=== PATIENT | female | born 1955 | race Caucasian/White ===

== ENCOUNTER 2018-01-08 20:12 | Emergency (ER) | payer MEDICARE ==
[~2018-01-08] VITALS: Ht 172.7 cm; Wt 78.9 kg
[2018-01-08 20:47] LABS: BASOPHILS # (AUTO) 0.1 (0.0-0.1); BASOPHILS % 0.7 % (0.0-1.0); EOSINOPHILS # (AUTO) 0.2 (0.0-0.4); EOSINOPHILS % 2.4 % (0.0-6.0); HEMATOCRIT 39.3 % (34.2-44.1); HEMOGLOBIN 12.8 g/dL (12.0-16.0); LYMPHOCYTES # (AUTO) 2.9 (1.0-3.2); LYMPHOCYTES % 33.5 % (18.0-39.1); MEAN CORPUSCULAR HEMOGLOBIN 28.1 pg (28-32); MEAN CORPUSCULAR HGB CONC 32.6 g/dL (31-35); MEAN CORPUSCULAR VOLUME 86.2 fL (81-99); MONOCYTES # (AUTO) 0.7 (0.2-0.8); MONOCYTES % 8.5 % (4.4-11.3); NEUTROPHILS # (AUTO) 4.8 (2.1-6.9); NEUTROPHILS % 54.7 % (38.7-80.0); PLATELET COUNT 263 x10e3/uL (140-360); RED BLOOD COUNT 4.56 x10e6/uL (3.6-5.1); RED CELL DISTRIBUTION WIDTH 12.7 % (11.7-14.4)
[2018-01-08 21:01] LABS: INR 0.91; PROTHROMBIN TIME 13.1 seconds (11.9-14.5)
[2018-01-08 21:11] LABS: ALBUMIN 3.9 g/dL (3.5-5.0); ALBUMIN/GLOBULIN RATIO 1.1 (0.8-2.0); ANION GAP 14.2 mmol/L (8-16); CALCIUM 9.8 mg/dL (8.4-10.2); CREATININE, SERUM 1.19 mg/dL (0.57-1.11); POTASSIUM 4.2 mmol/L (3.5-5.1)
[2018-01-08 21:17] LABS: CREATINE KINASE MB 0.9 ng/mL (0-5.0)
--- NOTE | 2018-01-08 21:48 | Diagnostic Imaging Report ---
EXAM: KNEE LEFT THREE VIEWS, AP, cross table lateral and oblique INDICATION: Pain in left knee after fall COMPARISON: None FINDINGS: BONES: No acute fractures. JOINTS: No malalignment. Degenerative changes. SOFT TISSUES: Normal IMPRESSION: No acute left knee findings. Signed by: Dr. Ginger Trent M.D. on 01/08/2018 9:45 PM
--- NOTE | 2018-01-08 21:49 | Diagnostic Imaging Report ---
EXAM: CHEST SINGLE (NOT PORTABLE), AP 1 view INDICATION: Not available COMPARISON: None FINDINGS: LINES/TUBES: None LUNGS: No consolidations or edema. PLEURA: No effusions or pneumothorax. HEART AND MEDIASTINUM: Normal size and contour. BONES AND SOFT TISSUES: No acute findings. IMPRESSION: No acute thoracic abnormality. Signed by: Dr. Ginger Trent M.D. on 01/08/2018 9:46 PM
--- NOTE | 2018-01-08 22:09 | Diagnostic Imaging Report ---
EXAMINATION: Head CT without contrast. HISTORY:Status post fall. COMPARISON:None. TECHNIQUE: Multidetector axial images were obtained from the foramen magnum to the vertex without contrast. The images were reconstructed using brain and bone algorithms. Thin section brain images were reformatted into coronal and sagittal planes. Dose modulation, iterative reconstruction, and/or weight based adjustment of the mA/kV was utilized to reduce the radiation dose to as low as reasonably achievable. Intravenous contrast: None IMAGE QUALITY: Acceptable. FINDINGS: Skull/scalp: No lytic or blastic. lesions. No surgical changes. Parenchyma: Nonspecific few, scattered supratentorial white matter patchy hypodensity are likely related to small vessel ischemic changes. No acute hemorrhage, mass or acute major vascular territorial infarct. Arteries: No density suggestive of thrombosis. Atherosclerotic calcification in bilateral carotid siphon. Dural sinuses: No abnormal density suggestive of thrombosis. Ventricles: No hydrocephalus or displacement. Extra-axial spaces: No abnormal density. Brain volume: Normal for age. Craniocervical junction: No mass, Chiari malformation, or basilar invagination. Sella: No mass. Paranasal/mastoid sinuses: Imaged portions unremarkable. IMPRESSION: No acute intracranial abnormality. Mild supratentorial white matter microvascular ischemic changes. Signed by: Dr. Katelin Dickey M.D. on 01/08/2018 10:05 PM
--- NOTE | 2018-01-08 22:14 | Diagnostic Imaging Report ---
History: Status post fall. Comparison studies: None Technique: Axial images were obtained through the cervical region.. Coronal and sagittal images reconstructed from the axial data. Dose modulation, iterative reconstruction, and/or weight based adjustment of the mA/kV was utilized to reduce the radiation dose to as low as reasonably achievable. Intravenous contrast: None Findings: Fractures: No acute fracture. Soft tissue injuries: None. Atlantoaxial articulation: Intact. Alignment: Loss of normal cervical lordosis is either positional or due to muscle spasm. No scoliosis. Cervicomedullary junction: No abnormalities. The foramen magnum is patent. Soft tissues: No abnormalities. Vertebrae: 8.4 mm well-corticated osseous fragment represents os odontoideum, a sequelae of prior trauma. No infection or neoplasm. Degenerative changes: C3-C4: Mild degenerative disc disease with anterior vertebral osteophyte and endplate sclerosis. C7-T1: Moderate left foraminal stenosis due to facet and uncovertebral arthrosis. IMPRESSION: 1. No acute cervical spine fracture. Loss of normal cervical lordosis is either positional or due to muscle spasm. 2. Ligament, spinal cord and or vascular abnormalities cannot be excluded on the basis of this examination. Signed by: Dr. Katelin Dickey M.D. on 01/08/2018 10:11 PM
[2018-01-08 22:16] LABS: CLARITY,URINE CLEAR (CLEAR); COLOR,URINE YELLOW (YELLOW); LEUKOCYTE ESTERASE ,URINE TRACE (NEGATIVE)
[2018-01-08 22:17] LABS: BACTERIA,URINE FEW /HPF; BILIRUBIN,URINE NEGATIVE (NEGATIVE); EPITHELIAL CELLS,URINE FEW /LPF; KETONES,URINE NEGATIVE (NEGATIVE); NITRITE,URINE NEGATIVE (NEGATIVE); PROTEIN,URINE DIPSTICK NEGATIVE (NEGATIVE); RBC,URINE 0-5 /HPF (0-5); URINE UROBILINOGEN 0.2 mg/dL (0.2 - 1); WBC,URINE (MAN) 0-5 /HPF (0-5)
--- NOTE | 2018-01-08 22:23 | Diagnostic Imaging Report ---
History:Status post fall. Comparison studies: None Technique: Axial images were obtained through the maxillofacial region. Coronal and sagittal images reconstructed from the axial data. Dose modulation, iterative reconstruction, and/or weight based adjustment of the mA/kV was utilized to reduce the radiation dose to as low as reasonably achievable. Intravenous contrast: None Findings: Soft tissues: No abnormalities. Bones: No fractures or bony abnormalities. Orbits: Globes: Intact Extra or intraconal abnormalities: None. Paranasal sinuses: Small polyp/retention cyst in left maxillary sinus. IMPRESSION: No acute abnormality. Signed by: Dr. Katelin Dickey M.D. on 01/08/2018 10:20 PM
[2018-01-08 22:39] VITALS: BP 166/83
--- OUTSIDE RECORDS SUMMARY | 2018-01-13 13:14 | XMS REPORT | Clinical Summary ---
Author Author [facility] Organization [employer] [facility] Address Unknown Phone Unavailable Care Team Providers Care Vault Manager Name Role Phone Luther Alvarado DO PCP Allergies Active Allergy Reactions Severity Noted Date Comments Kwesi Inhibitors 11/11/2016 Codeine 11/11/2016 Current Medications Prescription Sig. Disp. Refills Start End Date Status Date butalbital-acetaminophen- TAKE ONE (1) TABLET(S) BY 0 09/28/19 Active caff (FIORICET, ESGIC) MOUTH EVERY EIGHT HOURS 17 50-325-40 mg per tablet NEEDED FOR MIGRAINE HEADACHE. citalopram (CeleXA) 40 MG TAKE ONE (1) TABLET(S) BY 1 10/09/19 Active tablet MOUTH ONCE A DAY. 17 famotidine (PEPCID) 20 MG TAKE ONE (1) TABLET(S) BY 0 09/28/19 Active tablet MOUTH TWICE A DAY BEFORE 17 MEALS. ondansetron (ZOFRAN) 8 MG TAKE ONE (1) TABLET(S) BY 1 10/09/19 Active tablet MOUTH TWICE A DAY. 17 ondansetron ODT (ZOFRAN Take 1 tablet (4 mg 12 tablet 0 09/20/19 10/20/19 ODT) 4 MG disintegrating total) by mouth every 12 18 18 tablet (twelve) hours as needed for nausea for up to 30 days. Active Problems Problem Noted Date Chest pain 11/11/2016 Encounters Date Type Specialty Care Team Description 09/18/2017 Emergency Emergency Medicine Jonny Douglas Burning chest pain - Radhika Del Castillo MD (Primary Dx); 09/19/2017 Other migraine without status migrainosus, not intractable after 01/07/2017 Social History Tobacco Use Types Packs/Day Years Used Date Never Smoker Tobacco Cessation: Counseling Given: No Alcohol Use Drinks/Week oz/Week Comments No Sex Assigned at Date Recorded Not on file Last Filed Vital Signs Vital Sign Reading Time Taken Blood Pressure 180/86 09/19/2017 1:24 AM CDT Pulse 52 09/19/2017 1:24 AM CDT Temperature 35.7 C (96.2 F) 09/19/2017 1:24 AM CDT Respiratory Rate 16 09/19/2017 1:24 AM CDT Oxygen Saturation 99% 09/19/2017 1:24 AM CDT Inhaled Oxygen - - Concentration Weight 90.7 kg (200 lb) 09/18/2017 7:06 PM CDT Height 175.3 cm (5' 9") 09/18/2017 7:06 PM CDT Body Mass Index 29.53 09/18/2017 7:06 PM CDT Plan of Treatment Health Maintenance Due Date Last Done Comments CERVICAL CANCER SCREENING 1978 BREAST CANCER SCREENING 10/31/2007 COLON CANCER SCREENING 10/31/2007 SHINGRIX VACCINE (#1) 10/31/2007 INFLUENZA VACCINE 10/29/2017 ZOSTER VACCINE 2017 Implants Implanted Type Area Coach Builder Device Expiration Model / Identifier Date Serial / Lot Device Vasclr Clsr Baln Cath 10ml Cardiovasc N/A: N/A ACCESS CLOSURE 08/28/2018 [id number] / Lkng Syr 5fr [employer] / [id number] Implants [id number] Implanted: 11/12/2016 (Quantity not on file) Device Vasclr Clsr Baln Cath 10ml Cardiovasc N/A: N/A ACCESS CLOSURE 08/28/2018 [id number] / Lkng Syr 5fr [employer] / [id number] Implants [id number] Implanted: 11/12/2016 (Quantity not on file) Procedures Procedure Name Priority Date/Time Associated Diagnosis Comments TROPONIN Timed 09/19/2017 Results for this 12:31 AM CDT procedure are in the results section. ECG ED PRELIMINARY Routine 09/18/2017 Results for this INTERPRETATION 9:20 PM CDT procedure are in the results section. XR CHEST 2 VW STAT 09/18/2017 Results for this 8:41 PM CDT procedure are in the results section. ZZESTIMATED GFR STAT 09/18/2017 Results for this 8:00 PM CDT procedure are in the results section. TROPONIN STAT 09/18/2017 Results for this 8:00 PM CDT procedure are in the results section. BASIC METABOLIC PANEL STAT 09/18/2017 Results for this 8:00 PM CDT procedure are in the results section. HC COMPLETE BLD COUNT STAT 09/18/2017 Results for this W/AUTO DIFF 8:00 PM CDT procedure are in the results section. ECG 12-LEAD STAT 09/18/2017 Results for this 6:59 PM CDT procedure are in the results section. after 01/07/2017 Results * Troponin (09/19/2017 12:31 AM) Only the most recent of 2 results within the time period is included. Troponin <0.30 ng/mL [facility] DEPARTMENT OF Comment: PATHOLOGY AND 0.11 - 1.49 GENOMIC MEDICINE ng/mlMay indicate increased risk of acute coronary syndrome. >=1.5 ng/ml Consistent with acute myocardial infarction. The diagnostic value of a single normal or non-diagnostic result is questionable.Serial samples at 2-6 hour intervals are required to rule out acute myocardial injury. Specimen Plasma specimen Performing Organization Address City/State/Zipcode Phone Number [facility] DEPARTMENT OF [address] [place] [address] PATHOLOGY AND GENOMIC MEDICINE * ECG ED Preliminary Interpretation - NOT AN ORDER (09/18/2017 9:20 PM) Narrative Performed At Jonny Douglas Jr., MD 09/19/20171:25 AM ECG ED Preliminary Interpretation - Not an Order Performed by: JONNY DOUGLAS JR. Authorized by: JONNY DOUGLAS JR. ECG reviewed by ED Physician in the absence of a transitional care liaison: yes Previous ECG: Previous ECG:Compared to current Comparison ECG info:T-wave inversions were present on prior EKG done November 11, 2016. OR interval was borderline high at that time. Similarity:No change Interpretation: Interpretation: abnormal Rate: ECG rate:51 ECG rate assessment: bradycardic Rhythm: Rhythm: sinus rhythm Ectopy: Ectopy: none QRS: QRS axis:Normal QRS intervals:Normal Conduction: Conduction: abnormal Abnormal conduction: 1st degree ST segments: ST segments:Normal T waves: T waves: inverted T wave depression noted on lead: high lateral. Comments: No STEMI * XR Chest 2 Vw (09/18/2017 8:41 PM) Narrative Performed At Examination: Chest 2 views [facility] CLINICAL HISTORY: Chest Pain COMPARISON: 11/11/2016 FINDINGS: The heart is normal in size. Mediastinum is within normal limits. IMPRESSION: Lungs are clear. Pleural surfaces are smooth. [facility]-[id number] Procedure Note Hm Interface, Radiology Results Incoming - 09/18/2017 8:54 PM CDT Examination: Chest 2 views CLINICAL HISTORY: Chest Pain COMPARISON: 11/11/2016 FINDINGS: The heart is normal in size. Mediastinum is within normal limits. IMPRESSION: Lungs are clear. Pleural surfaces are smooth. [facility]-[id number] Performing Organization Address City/[facility]/Zipcode Phone Number [facility] [address] [place] [address] * Estimated GFR (09/18/2017 8:00 PM) GFR Non Af Amer 57 (A) mL/min/1.73 m2 [facility] DEPARTMENT OF PATHOLOGY AND GENOMIC MEDICINE GFR Af Amer 69 mL/min/1.73 m2 [facility] DEPARTMENT OF Comment: PATHOLOGY AND Chronic kidney disease: <60 [facility] MEDICINE mL/min/1.73m2 Kidney failure: <15 mL/min/1.73m2 The estimated GFR is calculated from the IDMS-traceable Modification of Diet in Renal Disease Equation. The accuracy of the calculation is poor when the creatinine is normal. Calculated values >90 mL/min/1.73m2 are not reported. This equation has not been validated in children (<18 years), women, the elderly (>70 years), or ethnic groups other than Caucasians and Americans. Specimen Plasma specimen Performing Organization Address City/State/Zipcode Phone Number [place] [address] [place] [address] PATHOLOGY AND GENOMIC MEDICINE * CBC with platelet and differential (09/18/2017 8:00 PM) WBC 7.9 4.2 - 11.0 k/uL [facility] DEPARTMENT OF PATHOLOGY AND GENOMIC MEDICINE RBC 4.73 4.04 - 5.86 m/uL [facility] DEPARTMENT OF PATHOLOGY AND GENOMIC MEDICINE HGB 13.3 11.5 - 15.3 g/dL [facility] DEPARTMENT OF PATHOLOGY AND GENOMIC MEDICINE HCT 41.3 34.0 - 45.0 % [facility] DEPARTMENT OF PATHOLOGY AND GENOMIC MEDICINE MCV 87.3 80.0 - 98.0 fL [facility] DEPARTMENT OF PATHOLOGY AND GENOMIC MEDICINE MCH 28.1 27.0 - 34.0 pg [facility] DEPARTMENT OF PATHOLOGY AND GENOMIC MEDICINE MCHC 32.2 31.5 - 36.5 g/dL [facility] DEPARTMENT OF PATHOLOGY AND GENOMIC MEDICINE RDW - SD 39.9 37.0 - 51.0 fL [facility] DEPARTMENT OF PATHOLOGY AND GENOMIC MEDICINE MPV 10.4 7.4 - 10.4 fL [facility] DEPARTMENT OF PATHOLOGY AND GENOMIC MEDICINE Platelet count 266 150 - 400 k/uL [facility] DEPARTMENT OF PATHOLOGY AND GENOMIC MEDICINE Nucleated RBC 0.00 /100 WBC [facility] DEPARTMENT OF PATHOLOGY AND GENOMIC MEDICINE Neutrophils 52.9 36.0 - 66.0 % [facility] DEPARTMENT OF PATHOLOGY AND GENOMIC MEDICINE Lymphocytes 37.0 24.0 - 44.0 % [facility] DEPARTMENT OF PATHOLOGY AND GENOMIC MEDICINE Monocytes 7.8 (H) 0.0 - 6.0 % [facility] DEPARTMENT OF PATHOLOGY AND GENOMIC MEDICINE Eosinophils 1.5 0.0 - 6.0 % [facility] DEPARTMENT PATHOLOGY AND GENOMIC MEDICINE Basophils 0.5 0.0 - 1.2 % [facility] DEPARTMENT PATHOLOGY AND GENOMIC MEDICINE Immature granulocytes 0.3 0.0 - 1.0 % [facility] PATHOLOGY AND GENOMIC MEDICINE Specimen Blood Performing Organization Address City/[facility] Phone Number [place] [address] [place] [address] PATHOLOGY AND GENOMIC [facility] * Basic metabolic panel (09/18/2017 8:00 PM) Sodium 137 135 - 150 mEq/L [facility] DEPARTMENT OF PATHOLOGY AND GENOMIC MEDICINE Potassium 4.3 3.5 - 5.0 mEq/L [facility] DEPARTMENT OF PATHOLOGY AND GENOMIC MEDICINE Chloride 102 98 - 112 mEq/L [facility] DEPARTMENT OF PATHOLOGY AND GENOMIC MEDICINE CO2 26 24 - 31 mmol/L [facility] DEPARTMENT PATHOLOGY AND GENOMIC MEDICINE Anion gap 9@ANIO 7 - 15 mEq/L [facility] DEPARTMENT OF PATHOLOGY AND GENOMIC MEDICINE BUN 14 7 - 18 mg/dL [facility] DEPARTMENT PATHOLOGY AND GENOMIC MEDICINE Creatinine 1.00 (H) 0.50 - 0.90 mg/dL [facility] DEPARTMENT PATHOLOGY AND GENOMIC MEDICINE Glucose 171 (H) 65 - 100 mg/dL [facility] DEPARTMENT PATHOLOGY AND GENOMIC MEDICINE Calcium 9.5 8.3 - 10.2 mg/dL [facility] DEPARTMENT PATHOLOGY AND GENOMIC MEDICINE Specimen Plasma specimen Performing Organization Address City/[facility]/Zipcode Phone Number [place] [address] [place] [address] PATHOLOGY AND GENOMIC MEDICINE * ECG 12 lead (09/18/2017 6:59 PM) Ventricular rate 51 [facility] Atrial rate 51 [facility] OR interval 212 [facility] QRSD interval 84 [facility] QT interval 466 [facility] QTC interval 429 [facility] P axis 1 67 [facility] QRS axis 1 -13 [facility] T wave axis 143 [facility] EKG impression Sinus bradycardia with 1st [facility] degree AV block-Cannot rule out Anteroseptal infarct , age undetermined-ST & T wave abnormality, consider lateral ischemia-Abnormal ECG-No previous ECGs available- Performing Organization Address City/State/Zipcode Phone Number [facility] [address] [place] [address] after 01/07/2017 Insurance Payer Benefit Subscriber ID Type Phone Address Plan / Group [employer] CIGNA xxxxxxxxx [facility]
== END 2018-01-08 22:45 | disposition home or self-care (01) ==
LOC: ER 20:12
DX: R42 Dizziness and giddiness (principal); S00.83XA Contusion of other part of head, initial encounter; S80.02XA Contusion of left knee, initial encounter; S00.81XA Abrasion of other part of head, initial encounter; S80.212A Abrasion, left knee, initial encounter; W01.0XXA Fall on same level from slipping, tripping and stumbling without subsequent striking against object, initial encounter; Y93.01 Activity, walking, marching and hiking; I10 Essential (primary) hypertension; E11.9 Type 2 diabetes mellitus without complications; M32.9 Systemic lupus erythematosus, unspecified
CPT/HCPCS: 36415; 70450; 70486; 71045; 72125; 80053; 81001; 82550; 82553; 84484; 85025; 85610; 85730; 93005; 99284

== ENCOUNTER 2018-04-27 19:16 | Emergency (ER) | payer MEDICARE ==
[~2018-04-27] VITALS: Ht 172.7 cm; Wt 90.7 kg
--- OUTSIDE RECORDS SUMMARY | 2018-04-27 19:19 | XMS REPORT ---
Author [facility] Address Unknown Phone Unavailable Care Team Providers Care Software Validation Technician Name Role Phone Ana RUIZ Unavailable Unavailable Problems This patient has no known problems. Allergies, Adverse Reactions, Alerts This patient has no known allergies or adverse reactions. Medications This patient has no known medications. Results Test Description Test Time Test Comments Text Results Atomic Results Result Comments CT MAXIO FAC/PARANAS WO 2018-01-08 22:11:00 [place] [address] Patient Name: DYLAN MOTA MR #: [id number] : 1955 Age/Sex: 62/F Req #: [id number] Adm Physician: Ordered by: RAMAKRISHNA RUIZ MD Report #: [id number] Location: ER Room/Bed: Procedure: [id number] CT/CT MAXIO FAC/PARANAS WO Exam Date: Exam Time: REPORT STATUS: Signed History:Status post fall. Comparison studies: None Technique: Axial images were obtained through the maxillofacial region. Coronal and sagittal images reconstructed from the axial data. Dose modulation, iterative reconstruction, and/or weight based adjustment of the mA/kV was utilized to reduce the radiation dose to as low as reasonably achievable. Intravenous contrast: None Findings: Soft tissues: No abnormalities. Bones: No fractures or bony abnormalities. Orbits: Globes: Intact Extra or intraconal abnormalities: None. Paranasal sinuses: Small polyp/retention cyst in left maxillary sinus. IMPRESSION: No acute abnormality. Signed by: Dr. Katelin Dickey M.D. on 01/08/2018 10:20 PM Dictated By: KATELIN DICKEY MD 19 Transcribed By: KATY on 01/08/182219 COPY TO: RAMAKRISHNA RUIZ MD CT CERVICAL SPINE WO 2018-01-08 22:05:00 [place] [address] Patient Name: DYLAN MOTA MR #: [id number] : 1955 Age/Sex: 62/F Req #: [id number] Adm Physician: Ordered by: RAMAKRISHNA RUIZ MD Report #: [id number] Location: ER Room/Bed: Procedure: [id number] CT/CT CERVICAL SPINE WO Exam Date: Exam Time: REPORT STATUS: Signed History: Status post fall. Comparison studies: None Technique: Axial images were obtained through the cervical region.. Coronal and sagittal images reconstructed from the axial data. Dose modulation, iterative reconstruction, and/or weight based adjustment of the mA/kV was utilized to reduce the radiation dose to as low as reasonably achievable. Intravenous contrast: None Findings: Fractures: No acute fracture. Soft tissue injuries: None. Atlantoaxial articulation: Intact. Alignment: Loss of normal cervical lordosis is either positional or due to muscle spasm. No scoliosis. Cervicomedullary junction: No abnormalities. The foramen magnum is patent. Soft tissues: No abnormalities. Vertebrae: 8.4 mm well- corticated osseous fragment represents os odontoideum, a sequelae of prior tr auma. No infection or neoplasm. Degenerative changes: C3-C4: Mild degenerative disc disease with anterior vertebral osteophyte and endplate sclerosis. C7-T1: Moderate left foraminal stenosis due to facet and uncovertebral arthrosis. IMPRESSION: 1. No acute cervical spine fracture. Loss of normal cervical lordosis is either positional or due to muscle spasm. 2. Ligament, spinal cord and or vascular abnormalities cannot be excluded on the basis of this examination. Signed by: Dr. Katelin Dickey M.D. on 01/08/2018 10:11 PM Dictated By: KATELIN DICKEY MD 10 Transcribed By: KATY on 01/08/182210 COPY TO: RAMAKRISHNA RUIZ MD CT BRAIN WO 2018-01-08 22:02:00 [place] [address] Patient Name: DYLAN MOTA MR #: [id number] : 1955 Age/Sex: 62/F Req #: [id number] Adm Physician: Ordered by: RAMAKRISHNA RUIZ MD Report #: [id number] Location: ER Room/Bed: Procedure: [id number] CT/CT BRAIN WO Exam Date: Exam Time: REPORT STATUS: Signed EXAMINATION: Head CT without contrast. HISTORY:Status post fall. COMPARISON:None. TECHNIQUE: Multidetector axial images were obtained from the foramen magnum to the vertex without contrast. The images were reconstructed using brain and bone algorithms. Thin section brain images were reformatted into coronal and sagittal planes. Dose modulation, iterative reconstruction, and/or weight based adjustment of the mA/kV was utilized to reduce the radiation dose to as low as reasonably achievable. Intravenous contrast: None IMAGE QUALITY: Acceptable. FINDINGS: Skull/scalp: No lytic or blastic. lesions. No surgical changes. Parenchyma: Nonspecific few, scattered supratentorial white matter patchy hypodensity are likely related to small vessel ischemic changes. No acute hemorrhage, mass or acute major vascular territorial infarct. Arteries: No density suggestive of thrombosis. Atherosclerotic calcification in bilateral carotid siphon. Dural sinuses: No abnormal density suggestive of thrombosis. Ventricles: No hydrocephalus or displacement. Extra-axial spaces: No abnormal density. Brain volume: Normal for age. Craniocervical junction: No mass, Chiari malformation, or basilar invagination. Sella: No mass. Paranasal/mastoid sinuses: Imaged portions unremarkable. IMPRESSION: No acute intracranial abnormality. Mild supratentorial white matter microvascular ischemic changes. Signed by: Dr. Katelin Dickey M.D. on 01/08/2018 10:05 PM Dictated By: KATELIN DICKEY MD 04 Transcribed By: KATY on 01/08/182204 COPY TO: RAMAKRISHNA RUIZ MD CHEST SINGLE (NOT PORTABLE) 2018-01-08 21:45:00 [place] [address] Patient Name: DYLAN MOTA MR #: [id number] : 1955 Age/Sex: 62/F Req #: [id number] Adm Physician: Ordered by: RAMAKRISHNA RUIZ MD Report #: [id number] Location: ER Room/Bed: Procedure: [id number] DX/CHEST SINGLE (NOT PORTABLE) Exam Date: 01/08/18 Exam Time: 2119 REPORT STATUS: Signed EXAM: CHEST SINGLE (NOT PORTABLE), AP 1 view INDICATION: Not available COMPARISON: None FINDINGS: LINES/TUBES: None LUNGS: No consolidations or edema. PLEURA: No effusions or pneumothorax. HEART AND MEDIASTINUM: Normal size and contour. BONES AND SOFT TISSUES: No acute findings. IMPRESSION: No acute thoracic abnormality. Signed by: Dr. Linda Trent M.D. on 01/08/2018 9: 46 PM Dictated By: LINDA TRENT MD 45 Transcribed By: KATY on 01/08/182145 COPY TO: RAMAKRISHNA RUIZ MD KNEE LEFT THREE VIEWS 2018-01-08 21:44:00 [place] [address] Patient Name: DYLAN MOTA MR #: [id number] : 1955 Age/Sex: 62/F Req #: [id number] Adm Physician: Ordered by: RAMAKRISHNA RUIZ MD Report #: [id number] Location: ER Room/Bed: Procedure: [id number] DX/KNEE LEFT THREE VIEWS Exam Date: 01/08/18 Exam Time: 2119 REPORT STATUS: Signed EXAM: KNEE LEFT THREE VIEWS, AP, cross table lateral and oblique INDICATION: Pain in left knee after fall COMPARISON: None FINDINGS: BONES: No acute fractures. JOINTS: No malalignment. Degenerative changes. SOFT TISSUES: Normal IMPRESSION: No acute left knee findings. Signed by: Dr. Linda Trent M.D. on 01/08/2018 9:45 PM Dictated By: LINDA TRENT MD 44 Transcribed By: KATY on 01/08/182144 COPY TO: RAMAKRISHNA RUIZ MD
--- OUTSIDE RECORDS SUMMARY | 2018-04-27 19:19 | XMS REPORT | Clinical Summary ---
Author Author [facility] Organization [facility] Address Unknown Phone Unavailable Care Team Providers Care Wharf Helper Name Role Phone Luther Alvarado DO PCP Allergies Comments Active Allergy Reactions Severity Noted Date Kwesi Inhibitors 11/11/2016 Codeine 11/11/2016 Medications End Date Status Medication Sig Dispensed Refills Start Date Active butalbital-acetaminophen- TAKE ONE (1) 0 caff (FIORICET, ESGIC) TABLET(S) BY 7 50-325-40 mg per tablet MOUTH EVERY EIGHT HOURS NEEDED FOR MIGRAINE HEADACHE. Active citalopram (CeleXA) 40 MG TAKE ONE (1) 1 tablet TABLET(S) BY 7 MOUTH ONCE A DAY. Active famotidine (PEPCID) 20 MG TAKE ONE (1) 0 tablet TABLET(S) BY 7 MOUTH TWICE A DAY BEFORE MEALS. Active ondansetron (ZOFRAN) 8 MG TAKE ONE (1) 1 tablet TABLET(S) BY 7 MOUTH TWICE A DAY. 10/19/2017 ondansetron ODT (ZOFRAN Take 1 tablet 12 tablet 0 ODT) 4 MG disintegrating (4 mg total) 8 tablet by mouth every 12 (twelve) hours as needed for nausea for up to 30 days. Active Problems Problem Noted Date Chest pain 11/11/2016 Encounters Care Team Description Date Type Specialty Jonny Douglas Jr., MD Burning chest pain (Primary Dx); Other migraine without status migrainosus, not intractable 09/18/2017 Emergency Emergency Medicine - 09/19/2017 after 04/26/2017 Social History Date Tobacco Use Types Packs/Day Years Used Never Smoker Tobacco Cessation: Counseling Given: No Alcohol Use Drinks/Week oz/Week Comments No Sex Assigned at Date Recorded Not on file Industry Job Start Date Occupation Not on file Not on file Not on file Travel End Travel History Travel Start No recent travel history available. Last Filed Vital Signs Time Taken Vital Sign Reading 09/19/2017 1:24 AM CDT Blood Pressure 180/86 09/19/2017 1:24 AM CDT Pulse 52 09/19/2017 1:24 AM CDT Temperature 35.7 C (96.2 F) 09/19/2017 1:24 AM CDT Respiratory Rate 16 09/19/2017 1:24 AM CDT Oxygen Saturation 99% - Inhaled Oxygen - Concentration 09/18/2017 7:06 PM CDT Weight 90.7 kg (200 lb) 09/18/2017 7:06 PM CDT Height 175.3 cm (5' 9") 09/18/2017 7:06 PM CDT Body Mass Index 29.53 Plan of Treatment Health Maintenance Due Date Last Done Comments CERVICAL CANCER SCREENING 1978 BREAST CANCER SCREENING 10/31/2007 COLON CANCER SCREENING 10/31/2007 SHINGLES VACCINES (1 of 10/31/2007 2) INFLUENZA VACCINE 10/29/2017 Implants Device Identifier Shelf Expiration Date Model / Serial / Lot Implanted Type Area Manufactur er 08/28/2018 [id number] / / [id number] Device Vasclr Clsr Baln Cath 10ml Cardiovasc N/A: N/A ACCESS Lkng Syr 5fr Ernandez Mynxgrip - ular CLOSURE [id number] [employer] Implanted: 11/12/2016 (Quantity not on file) 08/28/2018 [id number] / / [id number] Device Vasclr Clsr Baln Cath 10ml Cardiovasc N/A: N/A ACCESS Lkng Syr 5fr Ernandez Mynxgrip - ular CLOSURE [id number] [employer] Implanted: 11/12/2016 (Quantity not on file) Procedures Comments Procedure Name Priority Date/Time Associated Diagnosis TROPONIN Timed 09/19/2017 12:31 AM CDT ECG ED PRELIMINARY Routine 09/18/2017 INTERPRETATION 9:20 PM CDT XR CHEST 2 VW STAT 09/18/2017 8:41 PM CDT ZZESTIMATED GFR STAT 09/18/2017 8:00 PM CDT TROPONIN STAT 09/18/2017 8:00 PM CDT BASIC METABOLIC PANEL STAT 09/18/2017 8:00 PM CDT HC COMPLETE BLD COUNT STAT 09/18/2017 W/AUTO DIFF 8:00 PM CDT ECG 12-LEAD STAT 09/18/2017 6:59 PM CDT after 04/26/2017 Results * Troponin (09/19/2017 12:31 AM CDT) Only the most recent of 2 results within the time period is included. Troponin <0.30 ng/mL [facility] [place] Comment: PATHOLOGY AND 0.11 - 1.49 GENOMIC MEDICINE ng/mlMay indicate increased risk of acute coronary syndrome. >=1.5 ng/ml Consistent with acute myocardial infarction. The diagnostic value of a single normal or non-diagnostic result is questionable.Serial samples at 2-6 hour intervals are required to rule out acute myocardial injury. Specimen Plasma specimen Performing Organization Address City/State/Zipcode Phone Number [facility] [place] [address] [place] [address] PATHOLOGY AND GENOMIC MEDICINE * ECG ED Preliminary Interpretation - NOT AN ORDER (09/18/2017 9:20 PM CDT) Narrative Performed At Jonny Douglas Jr., MD 09/19/20171:25 AM ECG ED Preliminary Interpretation - Not an Order Performed by: JONNY DOUGLAS JR. Authorized by: JONNY DOUGLAS JR. ECG reviewed by ED Physician in the absence of a merchandise displayer: yes Previous ECG: Previous ECG:Compared to current Comparison ECG info:T-wave inversions were present on prior EKG done November 11, 2016. [place] interval was borderline high at that time. [...] * XR Chest 2 Vw (09/18/2017 8:41 PM CDT) Narrative Performed At Examination: Chest 2 views [facility] CLINICAL HISTORY: Chest Pain COMPARISON: 11/11/2016 FINDINGS: The heart is normal in size. Mediastinum is within normal limits. IMPRESSION: Lungs are clear. Pleural surfaces are smooth. [facility]-[id number] Procedure Note Hm Interface, Radiology Results Incoming - 09/18/2017 8:54 PM CDT Examination: Chest 2 views CLINICAL HISTORY: Chest Pain COMPARISON: 11/11/2016 FINDINGS: The heart is normal in size. Mediastinum is within normal limits. IMPRESSION: Lungs are clear. Pleural surfaces are smooth. [facility]-[id number] Performing Organization Address City/[facility]/Zipcode Phone Number [facility] [address] [place] [address] * Estimated GFR (09/18/2017 8:00 PM CDT) GFR Non Af Amer 57 (A) mL/min/1.73 m2 [facility] PATHOLOGY AND GENOMIC MEDICINE GFR Af Amer 69 mL/min/1.73 m2 [facility] Comment: PATHOLOGY AND Chronic kidney disease: <60 GENOMIC MEDICINE mL/min/1.73m2 Kidney failure: <15 mL/min/1.73m2 The [...] specimen Performing Organization Address City/State/Zipcode Phone Number [facility] [address] [place] [address] PATHOLOGY AND GENOMIC MEDICINE * CBC with platelet and differential (09/18/2017 8:00 PM CDT) WBC 7.9 4.2 - 11.0 k/uL [facility] PATHOLOGY AND GENOMIC MEDICINE RBC 4.73 4.04 - 5.86 m/uL [facility] PATHOLOGY AND GENOMIC MEDICINE HGB 13.3 11.5 - 15.3 g/dL [facility] PATHOLOGY AND GENOMIC MEDICINE HCT 41.3 34.0 - 45.0 % [facility] PATHOLOGY AND GENOMIC MEDICINE MCV 87.3 80.0 - 98.0 fL [facility] PATHOLOGY AND GENOMIC MEDICINE MCH 28.1 27.0 - 34.0 pg [facility] PATHOLOGY AND GENOMIC MEDICINE MCHC 32.2 31.5 - 36.5 g/dL [facility] PATHOLOGY AND GENOMIC MEDICINE RDW - SD 39.9 37.0 - 51.0 fL [facility] PATHOLOGY AND GENOMIC MEDICINE MPV 10.4 7.4 - 10.4 fL [facility] PATHOLOGY AND GENOMIC MEDICINE Platelet count 266 150 - 400 k/uL [facility] PATHOLOGY AND GENOMIC MEDICINE Nucleated RBC 0.00 /100 WBC [facility] PATHOLOGY AND GENOMIC MEDICINE Neutrophils 52.9 36.0 - 66.0 % [facility] PATHOLOGY AND GENOMIC MEDICINE Lymphocytes 37.0 24.0 - 44.0 % [facility] PATHOLOGY AND GENOMIC MEDICINE Monocytes 7.8 (H) 0.0 - 6.0 % [facility] PATHOLOGY AND GENOMIC MEDICINE Eosinophils 1.5 0.0 - 6.0 % [facility] PATHOLOGY AND GENOMIC MEDICINE Basophils 0.5 0.0 - 1.2 % [facility] PATHOLOGY AND GENOMIC MEDICINE Immature granulocytes 0.3 0.0 - 1.0 % [facility] PATHOLOGY AND GENOMIC MEDICINE Specimen Blood Performing Organization Address City/State/Zipcode Phone Number [place] [address] [place] [address] PATHOLOGY AND GENOMIC MEDICINE * Basic metabolic panel (09/18/2017 8:00 PM CDT) Sodium 137 135 - 150 mEq/L [facility] PATHOLOGY AND GENOMIC MEDICINE Potassium 4.3 3.5 - 5.0 mEq/L [facility] PATHOLOGY AND GENOMIC MEDICINE Chloride 102 98 - 112 mEq/L [facility] OF PATHOLOGY AND GENOMIC MEDICINE CO2 26 24 - 31 mmol/L [facility] PATHOLOGY AND GENOMIC MEDICINE Anion gap 9@ANIO 7 - 15 mEq/L [facility] PATHOLOGY AND GENOMIC MEDICINE BUN 14 7 - 18 mg/dL [facility] PATHOLOGY AND GENOMIC MEDICINE Creatinine 1.00 (H) 0.50 - 0.90 mg/dL [facility] PATHOLOGY AND GENOMIC MEDICINE Glucose 171 (H) 65 - 100 mg/dL [facility] PATHOLOGY AND GENOMIC MEDICINE Calcium 9.5 8.3 - 10.2 mg/dL [facility] PATHOLOGY AND GENOMIC MEDICINE Specimen Plasma specimen Performing Organization Address City/State/Zipcode Phone Number [facility] [place] [address] PATHOLOGY AND GENOMIC MEDICINE * ECG 12 lead (09/18/2017 6:59 PM CDT) Ventricular rate 51 [facility] Atrial rate 51 [facility] [place] interval 212 [facility] QRSD interval 84 [...] ECG-No previous ECGs available- Performing Organization Address City/[facility]ode Phone Number [facility] M[facility] [address] [place] [address] after 04/26/2017 Insurance Payer Benefit Subscriber ID Type Phone Address Plan / Group [employer] CIGNA xxxxxxxxx HMO HEALTHSPRI NG O MCR ADV Advance Directives Patient has advance care planning documents on file. For more information, madison hirsch contact: Lebron Donahue [address] [place] [address]
[2018-04-27] MEDS ORDERED: DEXAMETHASONE SOD PHOS 10 MG/1 ML VIAL IV ONE (19:45)
[2018-04-27] MEDS ORDERED: KETOROLAC TROMETHAMINE 60 MG/2 ML VIAL IM ONE (19:45)
[2018-04-27] MEDS ORDERED: ORPHENADRINE CITRATE 30 MG/ML VIAL IM ONE (19:45)
--- NOTE | 2018-04-27 20:21 | Diagnostic Imaging Report ---
EXAM: SP LUMBAR, COMPLETE MIN 4VW DATE: 04/27/2018 7:32 PM INDICATION: Pain COMPARISON: None FINDINGS: Vertebral heights and disc spaces are maintained. Minimal endplate and facet degenerative changes present. While indistinct on oblique views, on coned lateral view there is a questionable pars defect at L5. IMPRESSION: No definite acute finding. Questionable pars defect. Signed by: Dr. Rafa Barrios MD on 04/27/2018 8:17 PM
[2018-04-27 21:19] LABS: BILIRUBIN,URINE NEGATIVE (NEGATIVE); CLARITY,URINE CLEAR (CLEAR); COLOR,URINE YELLOW (YELLOW); KETONES,URINE NEGATIVE (NEGATIVE); LEUKOCYTE ESTERASE ,URINE NEGATIVE (NEGATIVE); NITRITE,URINE NEGATIVE (NEGATIVE); PROTEIN,URINE DIPSTICK NEGATIVE (NEGATIVE); URINE UROBILINOGEN 1 mg/dL (0.2 - 1)
[2018-04-27 21:27] LABS: EPITHELIAL CELLS,URINE MODERATE /LPF; RENAL EPITHELIAL CELLS,URINE FEW
[2018-04-27 22:01] VITALS: BP 161/97
== END 2018-04-27 22:06 | disposition home or self-care (01) ==
LOC: ER 19:16
DX: M54.5 Low back pain (principal); S39.012A Strain of muscle, fascia and tendon of lower back, initial encounter; X50.1XXA Overexertion from prolonged static or awkward postures, initial encounter; Y92.89 Other specified places as the place of occurrence of the external cause; I10 Essential (primary) hypertension; E11.9 Type 2 diabetes mellitus without complications; M32.9 Systemic lupus erythematosus, unspecified; Z98.84 Bariatric surgery status
CPT/HCPCS: 72110; 81001; 99283; J1100; J1885; J2360

== ENCOUNTER 2018-06-19 18:37 | Emergency (ER) | payer MEDICARE ==
[~2018-06-19] VITALS: Ht 172.7 cm; Wt 90.7 kg
--- OUTSIDE RECORDS SUMMARY | 2018-06-19 18:39 | XMS REPORT | Clinical Summary ---
Author Author Diana [facility] Organization [facility] Address Unknown Phone Unavailable Care Team Providers Care Testboard Operator Name Role Phone Luther Alvarado DO PCP [...] 09/18/2017 Emergency Emergency Medicine - 09/19/2017 after 06/18/2017 Social History Date Tobacco Use Types Packs/Day [...] 10/31/2007 COLON CANCER SCREENING 10/31/2007 SHINGLES VACCINES (#1) 10/31/2007 INFLUENZA VACCINE 10/29/2017 Implants Device Identifier Shelf Expiration Date Model / Serial / Lot Implanted Type Area Manufactur er 08/28/2018 [id number] / / [id number] Device Vasclr Clsr Baln Cath 10ml Cardiovasc N/A: N/A ACCESS Lkng Syr 5fr Ernanedz Mynxgrip - ular CLOSURE [id number] [employer] INC Implanted: 11/12/2016 (Quantity not on file) 08/28/2018 [id number] / / [id number] Device Vasclr Clsr Baln Cath 10ml Cardiovasc N/A: N/A ACCESS Lkng Syr 5fr Ernandez Mynxgrip - ular CLOSURE [id number] [employer] INC Implanted: 11/12/2016 (Quantity not on [...] 12-LEAD STAT 09/18/2017 6:59 PM CDT after 06/18/2017 Results * Troponin (09/19/2017 12:31 AM CDT) Only the most recent of 2 results within the time period is included. Troponin <0.30 ng/mL [facility] OF Comment: PATHOLOGY AND 0.11 - 1.49 GENOMIC MEDICINE ng/mlMay indicate increased risk of acute coronary syndrome. >=1.5 ng/ml Consistent with acute myocardial infarction. The diagnostic value of a single normal or non-diagnostic result is questionable.Serial samples at 2-6 hour intervals are required to rule out acute myocardial injury. Specimen Plasma specimen Performing Organization Address City/State/Zipcode Phone Number [facility] DE[facility] OF [address] [place] [address] PATHOLOGY AND GENOMIC MEDICINE * ECG ED Preliminary Interpretation - NOT AN ORDER (09/18/2017 9:20 PM CDT) Narrative Performed At Jonny Douglas Jr., MD 09/19/20171:25 AM ECG ED Preliminary Interpretation - Not an Order Performed by: JONNY DOUGLAS JR. Authorized by: JONNY DOUGLAS JR. ECG reviewed by ED Physician in the absence of a global marketing specialist: yes Previous ECG: Previous ECG:Compared to current Comparison ECG info:T-wave inversions were present on prior EKG done November 11, 2016. [place] interval was borderline high at that time. [...] Narrative Performed At Examination: Chest 2 views [facility] CLINICAL HISTORY: Chest Pain COMPARISON: 11/11/2016 FINDINGS: The heart is normal in size. Mediastinum is within normal limits. IMPRESSION: Lungs are clear. Pleural surfaces are smooth. [facility]-[id number] Procedure Note Hm Interface, Radiology Results Incoming - 09/18/2017 8:54 PM CDT Examination: Chest 2 views CLINICAL HISTORY: Chest Pain COMPARISON: 11/11/2016 FINDINGS: The heart is normal in size. Mediastinum is within normal limits. IMPRESSION: Lungs are clear. Pleural surfaces are smooth. [facility]-[id number] Performing Organization Address City/State/Zipcode Phone Number [facility] [address] [place] [address] * Estimated GFR (09/18/2017 8:00 PM CDT) GFR Non Af Amer 57 (A) mL/min/1.[address] [facility] DEPARTMENT OF PATHOLOGY AND GENOMIC MEDICINE GFR Af Amer 69 mL/min/1.[address] [facility] DE[facility] OF Comment: PATHOLOGY AND Chronic kidney [...] specimen Performing Organization Address City/State/Zipcode Phone Number [facility] DEPARTMENT [place] [address] [place] [address] PATHOLOGY AND GENOMIC MEDICINE * CBC with platelet and differential (09/18/2017 8:00 PM CDT) WBC 7.9 4.2 - 11.0 k/uL [facility] DEPARTMENT OF PATHOLOGY AND GENOMIC MEDICINE RBC 4.73 4.04 - 5.86 m/uL [facility] DEPARTMENT OF PATHOLOGY AND GENOMIC MEDICINE HGB 13.3 11.5 - 15.3 g/dL [facility] DE[facility]MENT OF PATHOLOGY AND GENOMIC MEDICINE HCT 41.3 34.0 - 45.0 % [facility] DE[facility]MENT OF PATHOLOGY AND GENOMIC MEDICINE MCV 87.3 80.0 - 98.[address] [facility] DEPARTMENT OF PATHOLOGY AND GENOMIC MEDICINE MCH 28.1 27.0 - 34.[address] [facility] DEPARTMENT OF PATHOLOGY AND GENOMIC MEDICINE MCHC 32.2 31.5 - 36.5 g/dL [facility] DEPARTMENT OF PATHOLOGY AND GENOMIC MEDICINE RDW - SD 39.9 37.0 - 51.[address] [facility] DEPARTMENT OF PATHOLOGY AND GENOMIC MEDICINE MPV 10.4 7.4 - 10.[address] [facility] DEPARTMENT OF PATHOLOGY AND GENOMIC MEDICINE Platelet count 266 150 - 400 k/uL [facility] DEPARTMENT OF PATHOLOGY AND GENOMIC MEDICINE Nucleated RBC 0.00 /[address] [facility] DEPARTMENT OF PATHOLOGY AND GENOMIC MEDICINE Neutrophils 52.9 36.0 - 66.0 % [facility]PARTMENT PATHOLOGY AND GENOMIC MEDICINE Lymphocytes 37.0 24.0 - 44.0 % [facility] DEPARTMENT OF PATHOLOGY AND GENOMIC MEDICINE Monocytes 7.8 (H) 0.0 - 6.0 % [facility] DEPARTMENT OF PATHOLOGY AND GENOMIC MEDICINE Eosinophils 1.5 0.0 - 6.0 % [facility] DEPARTMENT OF PATHOLOGY AND GENOMIC MEDICINE Basophils 0.5 0.0 - 1.2 % [facility]MENT OF PATHOLOGY AND GENOMIC MEDICINE Immature granulocytes 0.3 0.0 - 1.0 % [facility]MENT OF PATHOLOGY AND GENOMIC MEDICINE Specimen Blood Performing Organization Address City/State/Zipcode Phone Number [place] [address] [place] [address] PATHOLOGY AND GENOMIC MEDICINE * Basic metabolic panel (09/18/2017 8:00 PM CDT) Sodium 137 135 - 150 mEq/L [facility] DEPARTMENT OF PATHOLOGY AND GENOMIC MEDICINE Potassium 4.3 3.5 - 5.0 mEq/L [facility] DEPARTMENT OF PATHOLOGY AND GENOMIC MEDICINE Chloride 102 98 - 112 mEq/L [facility] OF PATHOLOGY AND GENOMIC MEDICINE CO2 26 24 - 31 mmol/L [facility]PARTMENT OF PATHOLOGY AND GENOMIC MEDICINE Anion gap 9@ANIO 7 - 15 mEq/L [facility] DEPARTMENT OF PATHOLOGY AND GENOMIC MEDICINE BUN 14 7 - 18 mg/dL [facility] DEPARTMENT OF PATHOLOGY AND GENOMIC MEDICINE Creatinine 1.00 (H) 0.50 - 0.90 mg/dL [facility] DEPARTMENT OF PATHOLOGY AND GENOMIC MEDICINE Glucose 171 (H) 65 - 100 mg/dL [facility] DEPARTMENT OF PATHOLOGY AND GENOMIC MEDICINE Calcium 9.5 8.3 - 10.2 mg/dL [facility] DEPARTMENT OF PATHOLOGY AND GENOMIC MEDICINE Specimen Plasma specimen Performing Organization Address City/State/Zipcode Phone Number [facility] DEPARTMENT OF [facility] [place] [address] PATHOLOGY AND GENOMIC MEDICINE * ECG 12 lead (09/18/2017 6:59 PM CDT) Ventricular rate 51 [facility] Atrial rate 51 [facility] M[facility] [place] interval 212 [facility] QRSD interval 84 [...] ECG-No previous ECGs available- Performing Organization Address City/[facility]/Zipcode Phone Number [facility] M[facility] [address] [place] [address] after 06/18/2017 Insurance Payer Benefit Subscriber ID Type Phone Address Plan / Group [employer] CIGNA xxxxxxxxx O [facility] ADV Advance Directives Patient has advance care planning documents on file. For more information, madison hirsch contact: Lebron Donahue [address] [place] [address]
[2018-06-19] MEDS ORDERED: DILTIAZEM HCL 5 MG/ML 5 ML VIAL IV ONE (20:45)
--- NOTE | 2018-06-19 20:55 | NUR ---
pt converted to sr
--- NOTE | 2018-06-19 21:35 | Diagnostic Imaging Report ---
EXAMINATION: PA and lateral views of the chest. COMPARISON: AP chest 01/08/2018 CLINICAL HISTORY: Chest heaviness, palpitations DISCUSSION: Lines/tubes: None. Lungs: The lungs are well inflated and clear. There is no evidence of pneumonia or pulmonary edema. Pleura: There is no pleural effusion or pneumothorax. Heart and mediastinum: Cardiomediastinal silhouette is unremarkable. Pulmonary vasculature is normal. Bones and soft tissues: No acute bony abnormalities. Degenerative changes in the thoracic spine IMPRESSION: No acute cardiopulmonary abnormalities. Signed by: Dr. Kalpesh Forbes M.D. on 06/19/2018 9:32 PM
[2018-06-19 21:41] LABS: BASOPHILS % 0.4 % (0.0-1.0); EOSINOPHILS # (AUTO) 0.1 (0.0-0.4); EOSINOPHILS % 1.3 % (0.0-6.0); HEMATOCRIT 38.8 % (34.2-44.1); HEMOGLOBIN 12.2 g/dL (12.0-16.0); LYMPHOCYTES % 30.4 % (18.0-39.1); MEAN CORPUSCULAR HEMOGLOBIN 25.8 pg (28-32); MEAN CORPUSCULAR HGB CONC 31.4 g/dL (31-35); MONOCYTES # (AUTO) 0.9 (0.2-0.8); MONOCYTES % 8.8 % (4.4-11.3); NEUTROPHILS # (AUTO) 5.7 (2.1-6.9); NEUTROPHILS % 58.9 % (38.7-80.0); PLATELET COUNT 322 x10e3/uL (140-360); RED BLOOD COUNT 4.73 x10e6/uL (3.6-5.1); RED CELL DISTRIBUTION WIDTH 15.1 % (11.7-14.4)
[2018-06-19 22:00] LABS: ALBUMIN 3.9 g/dL (3.5-5.0); ANION GAP 13.8 mmol/L (8-16); CALCIUM 9.9 mg/dL (8.4-10.2); CREATININE, SERUM 1.78 mg/dL (0.57-1.11); POTASSIUM 3.8 mmol/L (3.5-5.1)
[2018-06-19 22:20] LABS: CREATINE KINASE MB 1.7 ng/mL (0-5.0); THYROID STIMULATING HORMONE 0.979 uIU/mL (0.350-4.940)
[2018-06-19 23:45] VITALS: BP 140/87
== END 2018-06-19 23:46 | disposition home or self-care (01) ==
LOC: ER 18:37
DX: R00.2 Palpitations (principal); I48.91 Unspecified atrial fibrillation
CPT/HCPCS: 36415; 71046; 80053; 82550; 82553; 84443; 84484; 85025; 99284

== ENCOUNTER 2018-12-17 09:52 | Inpatient (IN) | payer MEDICARE ==
[~2018-12-17] VITALS: Ht 175.3 cm; Wt 97.5 kg
--- OUTSIDE RECORDS SUMMARY | 2018-12-17 09:55 | XMS REPORT ---
Author Author Kerri Herman Organization [employer] Address Unknown Phone Unavailable Care Team Providers Care Charging Board Operator Name Role Phone Radha Hermaneen CP Unavailable Allergies, Adverse Reactions, Alerts Substance Reaction Event Type ADOLPH inhibitors Info Not Available Drug Allergy Codeine Info Not Available Drug Allergy Problems Problem Type Condition Code Onset Dates Condition Status Assessment Pain in multiple finger joints M25.549 Active Assessment Counseling NOS Z71.9 Active Assessment Rash R21 Active Assessment History of pericarditis Z86.79 Active Medications Medication Code System Code Instructions Start Date End Date Status Dosage Zkwsixotdt-OJXZ-Cyqygdcu [facility] 13716955356 50-325-40 MG Orally every 4 hrs Active 1 capsule as needed Temazepam ND 52015426560 30 MG Orally Once a day Active 1 capsule at bedtime as needed Escitalopram Oxalate ND 83186157550 10 MG Orally Once a day Active 1 tablet Methocarbamol ND 56836167604 750 MG Orally every 4 hrs Active 1 tablet Aspirin ND 90536008193 81 MG Orally Once a day Active 1 tablet Ondansetron ND 92961904195 8 MG Orally Active not defined NIFEdipine ER ND 89735274667 60 MG Orally Once a day Active 1 tablet on an empty stomach Citalopram & Diet Manage Prod NDC 0 Active not defined Famotidine ND 69247905867 20 MG Orally Once a day Active 1 tablet at bedtime Metoprolol Tartrate ND 76771401533 50 MG Orally Twice a day Active 1 tablet with food Benadryl NDC 0 Oral Active 1 tab Amlodipine Besylate ND 04291572452 10 MG Orally Once a day Active 1 tablet Ferrous Sulfate ND 93239663446 325 (65 Fe) MG Orally Once a day Active 1 tablet Vital Signs Date/Time: May 23, 2017 Height 68 in Blood Pressure Diastolic 88 mm Hg Blood Pressure Systolic 134 mm Hg Weight 198.6 lbs Results No Known Results Summary Purpose [employer] Submission
--- OUTSIDE RECORDS SUMMARY | 2018-12-17 09:55 | XMS REPORT ---
Author Author Kerri Herman Organization [employer] Address Unknown Phone Unavailable Care Team Providers Care Shroudman Name Role Phone Kerri Herman CP Unavailable Allergies, Adverse Reactions, Alerts Substance [...] Instructions Start Date End Date Status Dosage Famotidine [facility] [address]-61 20 MG Orally Once a day Active 1 tablet at bedtime Aspirin [facility] [address]-24 81 MG Orally Once a day Active 1 tablet Benadryl NDC 0 Oral Active 1 tab Amlodipine Besylate [facility] [address]-67 10 MG Orally Once a day Active 1 tablet Citalopram & Diet Manage Prod NDC 0 Active not defined Jqkgrtqfmn-RERQ-Xosfflfg [facility] [address]-45 50-325-40 MG Orally every 4 hrs Active 1 capsule as needed Ondansetron [facility] [address]-69 8 MG Orally Active not defined Vital Signs Date/Time: Nov 07, 2016 Height 68 in Blood Pressure Diastolic 90 mm Hg Blood Pressure Systolic 138 mm Hg Weight 179 lbs Results No Known Results Summary Purpose [employer] Submission
--- OUTSIDE RECORDS SUMMARY | 2018-12-17 09:55 | XMS REPORT | Clinical Summary ---
Author Author [facility] Organization [facility] Address Unknown Phone Unavailable Care Team Providers Care Rotary Helper Name Role Phone Luther Alvarado DO [...] TABLET(S) BY 7 MOUTH TWICE A DAY. Active Problems Problem Noted Date Chest pain 11/11/2016 Social History Date Tobacco Use Types Packs/Day Years Used Never Smoker Tobacco Cessation: Counseling Given: No Drinks/Week oz/Week Comments Alcohol Use No Sex Assigned at Date Recorded Not on file Industry Job Start Date Occupation Not on file Not on file Not on file Travel End Travel History Travel Start No recent travel history available. Last Filed Vital Signs Not on file Plan of Treatment Health Maintenance Due Date Last Done Comments CERVICAL CANCER SCREENING 1978 BREAST CANCER SCREENING 10/31/2007 COLONOSCOPY SCREENING 10/31/2007 SHINGLES VACCINES (#1) 10/31/2007 INFLUENZA VACCINE 10/29/2018 Implants Device Identifier Shelf Expiration Date Model / Serial / Lot Implanted Type Area Manufactur er 08/28/2018 [id number] / / [id number] Device Vasclr Clsr Baln Cath 10ml Cardiovasc N/A: N/A ACCESS Lkng Syr 5fr Ernandez Mynxgrip - ular CLOSURE [id number] [employer] Implanted: 11/12/2016 at [facility] (Quantity not on file) 08/28/2018 [id number] / / [id number] Device Vasclr Clsr Baln Cath 10ml Cardiovasc N/A: N/A ACCESS Lkng Syr 5fr Ernandez Mynxgrip - ular CLOSURE [id number] [employer] Implanted: 11/12/2016 at [facility] (Quantity not on file) Results Not on fileafter 12/16/2017 Insurance Type Payer Benefit Subscriber ID Effective Phone Address Plan / Dates Group HMO CIGNA [employer] CIGNA xxxxxxxxx 2016-P [facility] Advance Directives For more information, please contact: [phone] Patient Cottage Master Explanation Type Date Recorded Advance Directives, 09/18/2017 10:37 PM Living Will and Medical Power of Software Integrator
--- OUTSIDE RECORDS SUMMARY | 2018-12-17 09:55 | XMS REPORT ---
Author Author Kerri Herman Organization [employer] Address Unknown Phone Unavailable Care Team Providers Care Driftman Name Role Phone Kerri Herman CP Unavailable [...] Instructions Start Date End Date Status Dosage Citalopram & Diet Manage Prod NDC 0 Active not defined Amlodipine Besylate [facility] [place] 2[place] [address]-97 10 MG Orally Once a day Active 1 tablet Benadryl ND 0 Oral Active 1 tab Ijofrfcyad-VDEM-Gsxloveq [facility] [place] 2] [address]-49 50-325-40 MG Orally every 4 hrs Active 1 capsule as needed Aspirin [facility] [place] 2] [address]-71 81 MG Orally Once a day Active 1 tablet Famotidine [facility] [place]NOTE 2] [address]-65 20 MG Orally Once a day Active 1 tablet at bedtime Ondansetron [facility] [place]NOTE 2] [address]-45 8 MG Orally Active not defined Vital Signs Date/Time: October 23, 2016 Height 68 in Blood Pressure Diastolic 93 mm Hg Blood Pressure Systolic 142 mm Hg Weight 174 lbs Results No Known Results Summary Purpose [employer] Submission
--- OUTSIDE RECORDS SUMMARY | 2018-12-17 09:55 | XMS REPORT ---
Author Author Kerri Herman Organization [employer] Address Unknown Phone Unavailable Care Team Providers Care Civil Cad Designer Name Role Phone Kerri Herman CP Unavailable Allergies No Known Allergies Problems No Known Problems Medications No Known Medications Results No Known Results Summary Purpose [employer] Submission
--- OUTSIDE RECORDS SUMMARY | 2018-12-17 09:55 | XMS REPORT | Continuity of Care Document ---
Author Author [place] Address Unknown Phone Unavailable Care Team Providers Care Fire Boat Engineer Name Role Phone [employer] Unavailable Unavailable Problems Problem Status Onset Date Classification Date Reported Comments Source Pain in multiple finger joints Active Diagnosis 05/28/2017 Kerri Najam Counseling NOS Active Diagnosis 05/28/2017 Kerri Najam Rash Active Diagnosis 05/28/2017 Kerri Natorym History of pericarditis Active Diagnosis 05/28/2017 Kerri Natorym Chronic renal impairment Active Problem 06/20/2018 [facility] Contact dermatitis Active Problem 06/20/2018 [facility] Medications Medication Details Route Status Patient Instructions Ordering Provider Order Date Source Citalopram & Diet Manage Prod not defined NA Active Najam Kerri Najam Amlodipine Besylate 1 tablet Orally Active 10 MG Orally Once a day Najam Kerri Najam Benadryl 1 tab Oral Active Oral Najam Kerri Najam Qmigfyhgyz-LYIR-Eybnoklx 1 capsule as needed Orally Active 50-325-40 MG Orally every 4 hrs Najam Kerri Najam Aspirin 1 tablet Orally Active 81 MG Orally Once a day Najam Kerri Najam Famotidine 1 tablet at bedtime Orally Active 20 MG Orally Once a day Najam Kerri Najam Ondansetron not defined Orally Active 8 MG Orally Najam Kerri Najam Tdtkbdoipv-CWTE-Gbltjzwg 1 capsule as needed Orally Active 50-325-40 MG Orally every 4 hrs Najam Kerri Najam Temazepam 1 capsule at bedtime as needed Orally Active 30 MG Orally Once a day Najam Kerri Najam Escitalopram Oxalate 1 tablet Orally Active 10 MG Orally Once a day Najam Kerri Najam Methocarbamol 1 tablet Orally Active 750 MG Orally every 4 hrs Najam Kerri Najam Aspirin 1 tablet Orally Active 81 MG Orally Once a day Najam Kerri Najam Ondansetron not defined Orally Active 8 MG Orally Fátima Kerri Shine NIFEdipine ER 1 tablet on an empty stomach Orally Active 60 MG Orally [facility] Famotidine 1 tablet at bedtime Orally Active 20 MG Orally Once a day [facility] Metoprolol Tartrate 1 tablet with food Orally Active 50 MG Orally Twice a day [facility] Amlodipine Besylate 1 tablet Orally Active 10 MG Orally Once a day [facility] Ferrous Sulfate 1 tablet Orally Active 325 (65 Fe) MG Orally Once a day [facility] Allergies, Adverse Reactions, Alerts Substance Category Reaction Severity Reaction type Status Date Reported Comments Source Codeine SWELLING Severe Allergy to Substance Active 10/18/2016 [facility] Angiotensin-converting enzyme inhibitor SWELLING Severe Allergy to Substance Active 10/18/2016 [facility] ADOLPH inhibitors Adverse Reaction Info Not Available Adverse Reaction Active 05/23/2017 [facility] Immunizations No Data Provided for This Section Results Order Name Results Value Reference Range Date Interpretation Comments Source Blood leukocytes automated count (number/volume) 9.75 4.8 - 10.8 06/19/2018 [facility] Blood erythrocytes automated count (number/volume) 4.73 3.6 - 5.1 06/19/2018 [facility] Blood hemoglobin measurement (moles/volume) 12.2 12.0 - 16.0 06/19/2018 [facility] Automated blood hematocrit (volume fraction) 38.8 34.2 - 44.1 06/19/2018 [facility] Automated erythrocyte mean corpuscular volume 82.0 81 - 99 06/19/2018 [facility] Automated erythrocyte mean corpuscular hemoglobin (mass per erythrocyte) 25.8 28 - 32 06/19/2018 [facility] Automated erythrocyte mean corpuscular hemoglobin concentration measurement (mass/volume) 31.4 31 - 35 06/19/2018 [facility] RDW BldCo-Rto 15.1 11.7 - 14.4 06/19/2018 [facility] Automated blood platelet count (count/volume) 322 140 - 360 06/19/2018 [facility] Automated blood segmented neutrophil count as percentage of total leukocytes 58.9 38.7 - 80.0 06/19/2018 [facility] Automated blood lymphocyte count as percentage ot total leukocytes 30.4 18.0 - 39.1 06/19/2018 [facility] Automated blood monocyte count as percentage of total leukocytes 8.8 4.4 - 11.3 06/19/2018 [facility] Automated blood eosinophil count as percentage of total leukocytes 1.3 0.0 - 6.0 06/19/2018 [facility] Automated blood basophil count as percentage of total leukocytes 0.4 0.0 - 1.0 06/19/2018 [facility] IM GRANULOCYTES % 0.2 0.0 - 1.0 06/19/2018 [facility] Automated blood neutrophil count 5.7 2.1 - 6.9 06/19/2018 [facility] Blood lymphocytes count (number/volume) 3.0 1.0 - 3.2 06/19/2018 [facility] Blood monocytes automated count (number/volume) 0.9 0.2 - 0.8 06/19/2018 [facility] Automated blood eosinophil count 0.1 0.0 - 0.4 06/19/2018 [facility] Automated blood basophil count (count/volume) 0.0 0.0 - 0.1 06/19/2018 [facility] Absolute Immature Granulocyte (auto 0.02 0 - 0.1 06/19/2018 [facility] Serum or plasma sodium measurement (moles/volume) 137 136 - 145 06/19/2018 [facility] Serum or plasma potassium measurement (moles/volume) 3.8 3.5 - 5.1 06/19/2018 [facility] Serum or plasma chloride measurement (moles/volume) 102 98 - 107 06/19/2018 [facility] Serum or plasma carbon dioxide, total measurement (moles/volume) 25 22 - 29 06/19/2018 [facility] Serum or plasma anion gap 13.8 8 - 16 06/19/2018 [facility] Serum or plasma urea nitrogen measurement (mass/volume) 30 7 - 26 06/19/2018 [facility] Serum or plasma creatinine measurement (mass/volume) 1.78 0.57 - 1.11 06/19/2018 [facility] Serum or plasma urea nitrogen/creatinine mass ratio 17 6 - 25 06/19/2018 [facility] Estimated glomerular filtration rate (GFR) determination 29 60 06/19/2018 [facility] Glucose measurement 232 74 - 118 06/19/2018 [facility] Serum or plasma calcium measurement (mass/volume) 9.9 8.4 - 10.2 06/19/2018 [facility] Serum or plasma total bilirubin measurement (mass/volume) 0.5 0.2 - 1.2 06/19/2018 [facility] Aspartate Amino Transf (AST/SGOT) 16 5 - 34 06/19/2018 [facility] Serum or plasma alanine aminotransferase measurement (enzymatic activity/volume) 10 0 - 55 06/19/2018 [facility] Serum or plasma protein measurement (mass/volume) 7.7 6.5 - 8.1 06/19/2018 [facility] Serum or plasma albumin measurement (mass/volume) 3.9 3.5 - 5.0 06/19/2018 [facility] Plasma globulin measurement (mass/volume) 3.8 2.3 - 3.5 06/19/2018 [facility] Serum or plasma albumin/globulin mass ratio 1.0 0.8 - 2.0 06/19/2018 [facility] Serum or plasma alkaline phosphatase measurement (enzymatic activity/volume) 108 40 - 150 06/19/2018 [facility] Serum or plasma creatine kinase measurement (enzymatic activity/volume) 70 29 - 168 06/19/2018 [facility] Serum or plasma creatine kinase MB measurement (mass/volume) 1.70 0 - 5.0 06/19/2018 [facility] Troponin I measurement by highly sensitive enzyme immunoassay 0.107 0 - 0.300 06/19/2018 [facility] Serum or plasma thyrotropin measurement by detection limit <=0.005 miu/l (units/volume) 0.979 0.350 - 4.940 06/19/2018 [facility] Urine color determination YELLOW YELLOW 04/27/2018 [facility] Urine clarity CLEAR CLEAR 04/27/2018 [facility] Specific gravity of Urine by Test strip 1.005 1.010 - 1.025 04/27/2018 [facility] Urine pH measurement by automated test strip 6 5 - 7 04/27/2018 [facility] Urine leukocyte esterase detection by dipstick NEGATIVE NEGATIVE 04/27/2018 [facility] Urine nitrite detection NEGATIVE NEGATIVE 04/27/2018 [facility] Urine protein measurement by test strip (mass/volume) NEGATIVE NEGATIVE 04/27/2018 [facility] Urine glucose detection NEGATIVE NEGATIVE 04/27/2018 [facility] Urine ketones detection by automated test strip NEGATIVE NEGATIVE 04/27/2018 [facility] Urine urobilinogen measurement by test strip (mass/volume) 1 0.2 - 1 04/27/2018 [facility] Urine total bilirubin measurement (mass/volume) NEGATIVE NEGATIVE 04/27/2018 [facility] Urine erythrocytes detection NEGATIVE NEGATIVE 04/27/2018 [facility] Automated urine sediment leukocyte count by microscopy (number/high power field) NONE 0 - 5 04/27/2018 [facility] Erythrocytes detection in urine sediment by light microscopy NONE 0 - 5 04/27/2018 [facility] Bacteria detection in urine sediment by light microscopy NONE NONE 04/27/2018 [facility] Epithelial cells detection in urine sediment by light microscopy MODERATE NONE 04/27/2018 [facility] Renal epithelial cells detection in urine sediment by light microscopy FEW NONE 04/27/2018 [facility] Prothrombin time (PT) in platelet poor plasma by coagulation assay 13.1 11.9 - 14.5 01/08/2018 [facility] INR in Platelet poor plasma by Coagulation assay 0.91 01/08/2018 [facility] Activated partial thromboplastin time (aPTT) in platelet poor plasma bycoagulation assay 27.0 23.8 - 35.5 01/08/2018 [facility] Pathology Reports No Data Provided for This Section Diagnostic Reports No Data Provided for This Section Consultation Notes No Data Provided for This Section Discharge Summaries No Data Provided for This Section History and Physicals No Data Provided for This Section Vital Signs Vital Sign Value Date Comments Source Height 68 05/23/2017 Kerri Najam Diastolic (mm Hg) 88 05/23/2017 Kerri Najam Systolic (mm Hg) 134 05/23/2017 Kerri Najam Weight 198.6 05/23/2017 Kerri Najam Height 68 11/07/2016 Kerri Najam Diastolic (mm Hg) 90 11/07/2016 Kerri Najam Systolic (mm Hg) 138 11/07/2016 Kerri Najam Weight 179 11/07/2016 Kerri Najam Height 68 10/23/2016 Kerri Najam Diastolic (mm Hg) 93 10/23/2016 Kerri Najam Systolic (mm Hg) 142 10/23/2016 Kerri Najam Weight 174 10/23/2016 Kerri Najam Encounters Location Location Details Encounter Type Encounter Number Reason For Visit Attending Provider ADM Date DC Date Status Source Departed Emergency Room [id number] RAMAKRISHNA RUIZ MD 01/08/2018 01/08/2018 [facility] Departed Emergency Room [id number] RAMAKRISHNA RUIZ MD 04/27/2018 04/27/2018 [facility] Departed Emergency Room [id number] JAMES MOREL MD 06/19/2018 06/19/2018 [facility] Procedures Procedure Code Date Perfomer Comments Source X-ray of chest, two views [id number] 06/19/2018 [facility] Computed tomography of brain without radiopaque contrast [id number] 01/08/2018 [facility] Computed tomography of cervical spine without contrast [id number] 01/08/[address] [facility] [address] maxillofacial area wo contrast [id number] 01/08/2018 [facility] X-ray of chest, single view [id number] 01/08/2018 [facility] Assessment and Plan No Data Provided for This Section Plan of Care Plan of Care Date Source Discharge Date 06/19/18 11:46pm Disposition HOME, SELF-CARE Condition at Discharge Stable Instructions/Education Provided Chest Pain - Chest Wall Forms Provided Work/School Excuse Prescriptions See Medication Section Referrals ALISON FRANCO DO Address: [address] [facility] [address] [place] [address] LINDA RIDDLE MD Address: [address] [facility] [address] [place], [place] [id number] Additional Instructions/Education 1. Please f/u with the senior property manager provided for your paroxsymal a fib 06/19/2018 [facility] Social History Social History Date Source Smoking Status Start Date Stop Date Never Smoker 06/19/2018 [facility] Family History No Data Provided for This Section Advance Directives Order Name Results Value Date Source Advance Directives Advance Directives Directive Response Recorded Date/Time Does the patient have an advance directive? No 10/19/16 6:02am Do you have a Directive to Physician? No 06/19/18 10:01pm Do you have a Medical Power of Television Picture Tube Rebuilder? No 06/19/18 10:01pm Do you have an out of hospital Do Not Resuscitate Order? No 06/19/18 10:01pm Do you have any special needs we should be aware of? No 06/19/18 10:01pm Do you have a support person here with you today? Yes 06/19/18 10:01pm Did patient receive Notice of Privacy Practices? Yes 06/19/18 10:01pm Did patient receive patient rights and responsibilities? Yes 06/19/18 10:01pm 06/19/2018 [facility] Functional Status No Data Provided for This Section
[2018-12-17] MEDS ORDERED: ASPIRIN 81 MG CHEW TAB PO ONE (10:00)
[2018-12-17] MEDS ORDERED: DILTIAZEM HCL 5 MG/ML 5 ML VIAL IV STA (10:03)
[2018-12-17] MEDS ORDERED: SODIUM CHLORIDE 0.9% 500ML 500 ML IV STA (10:15)
[2018-12-17] MEDS ORDERED: DILTIAZEM HCL 5 MG/ML 5 ML VIAL IV ONE (10:15)
[2018-12-17 10:19] LABS: BASOPHILS % 0.5 % (0.0-1.0); EOSINOPHILS # (AUTO) 0.1 (0.0-0.4); HEMATOCRIT 37.6 % (34.2-44.1); HEMOGLOBIN 11.9 g/dL (12.0-16.0); LYMPHOCYTES # (AUTO) 2.4 (1.0-3.2); LYMPHOCYTES % 28.3 % (18.0-39.1); MEAN CORPUSCULAR HEMOGLOBIN 24.9 pg (28-32); MEAN CORPUSCULAR HGB CONC 31.6 g/dL (31-35); MEAN CORPUSCULAR VOLUME 78.7 fL (81-99); MONOCYTES # (AUTO) 0.6 (0.2-0.8); MONOCYTES % 7.5 % (4.4-11.3); NEUTROPHILS # (AUTO) 5.3 (2.1-6.9); NEUTROPHILS % 62.5 % (38.7-80.0); PLATELET COUNT 297 x10e3/uL (140-360); RED BLOOD COUNT 4.78 x10e6/uL (3.6-5.1)
[2018-12-17] MEDS ORDERED: SODIUM CHLORIDE FLUSH 10 ML SYR INJ PRN (10:45)
[2018-12-17] MEDS ORDERED: ONDANSETRON HCL INJ 2MG/ML 2ML 2 MG/ML VIAL IV PRN (10:45)
[2018-12-17 10:51] LABS: ALBUMIN 3.6 g/dL (3.5-5.0); ALBUMIN/GLOBULIN RATIO 1.1 (0.8-2.0); CALCIUM 9.6 mg/dL (8.4-10.2); CREATININE, SERUM 1.51 mg/dL (0.57-1.11)
[2018-12-17 11:00] LABS: CREATINE KINASE MB 1.5 ng/mL (0-5.0); INR 0.92; PROTHROMBIN TIME 12.9 seconds (11.9-14.5)
[2018-12-17 11:01] LABS: PARTIAL THROMBOPLASTIN TIME 25.8 seconds (23.8-35.5)
[2018-12-17] MEDS: DILTIAZEM HCL 125 ML IV SCH ×2 (11:12→19:43)
--- NOTE | 2018-12-17 11:31 | Diagnostic Imaging Report ---
Chest, 1 view, 12/17/2018. History: A. Fib. Comparison: None available. Findings: The cardiomediastinal silhouette and pulmonary vasculature are within normal limits for a portable exam. There is no focal consolidation or pleural effusion. Loop recorder device is noted. There are no acute osseous or soft tissue abnormalities. Impression: No acute cardiopulmonary abnormality. Signed by: Donnell Herring on 12/17/2018 11:27 AM
--- OUTSIDE RECORDS SUMMARY | 2018-12-17 11:36 | XMS REPORT | Continuity of Care Document ---
Author Author [employer] Address Unknown Phone Unavailable Care Team Providers Care Pest Control Specialist Name Role Phone View3 Information [employer] Unavailable Unavailable Problems Problem Status Onset Date Classification Date Reported Comments Source Pain in multiple finger joints Active Diagnosis 05/28/2017 Kerri Najam Counseling NOS Active Diagnosis 05/28/2017 Kerri Najam Rash Active Diagnosis 05/28/2017 Kerri Natorym History of pericarditis Active Diagnosis 05/28/2017 Kerri Natorym Chronic renal impairment Active Problem 06/20/2018 [facility] Contact dermatitis Active Problem 06/20/2018 [facility] Medications Medication Details Route Status Patient Instructions Ordering Provider Order Date Source Citalopram & Diet Manage Prod not defined NA Active Najam Kerri Najam Amlodipine Besylate 1 tablet Orally Active 10 MG Orally Once a day Najam Kerri Najam Benadryl 1 tab Oral Active Oral Najam Kerri Najam Bylsqeynxw-QXWY-Mtmopvie 1 capsule as needed Orally Active 50-325-40 MG Orally every 4 hrs Najam Kerri Najam Aspirin 1 tablet Orally Active 81 MG Orally Once a day Najam Kerri Najam Famotidine 1 tablet at bedtime Orally Active 20 MG Orally Once a day Najam Kerri Najam Ondansetron not defined Orally Active 8 MG Orally Najam Kerri Najam Xvfxartqka-AMFU-Qtilqsvw 1 capsule as needed Orally Active 50-325-40 [...] Active 60 MG Orally [facility] Famotidine 1 tablet at bedtime Orally Active 20 MG Orally Once a day [facility] Metoprolol Tartrate 1 tablet with food Orally Active 50 MG Orally Twice a day [facility] Amlodipine Besylate 1 tablet Orally Active 10 MG Orally Once a day [facility] Ferrous Sulfate 1 tablet Orally Active 325 (65 Fe) MG Orally Once a day [facility]át[facility]Ray [facility] Hospital[facility] Allergies, Adverse Reactions, Alerts Substance Category Reaction Severity Reaction type Status Date Reported Comments Source Codeine SWELLING Severe Allergy to Substance Active 10/18/2016 [facility] Angiotensin-converting enzyme inhibitor SWELLING Severe Allergy to Substance Active 10/18/2016 [facility] ADOLPH inhibitors Adverse Reaction Info Not Available Adverse Reaction Active 05/23/2017 [facility] Immunizations No Data Provided for This Section Results Order Name Results Value Reference Range Date Interpretation Comments Source Blood leukocytes automated count (number/volume) 9.75 4.8 - 10.8 06/19/2018 [facility] Blood erythrocytes automated count (number/volume) 4.73 3.6 - 5.1 06/19/2018 [facility] Blood hemoglobin measurement (moles/volume) 12.2 12.0 - 16.0 06/19/2018 [facility] Automated blood hematocrit (volume fraction) 38.8 34.2 - 44.1 06/19/2018 [facility] Automated erythrocyte mean corpuscular volume 82.0 81 - 99 06/19/2018 [facility] Automated erythrocyte mean corpuscular hemoglobin (mass per erythrocyte) 25.8 28 - 32 06/19/2018 [facility] Automated erythrocyte mean corpuscular hemoglobin concentration measurement (mass/volume) 31.4 31 - 35 06/19/2018 [facility] RDW BldCo-Rto 15.1 11.7 - 14.4 06/19/2018 [facility] Automated blood platelet count (count/volume) 322 140 - 360 06/19/2018 [facility] Automated blood segmented neutrophil count as percentage of total leukocytes 58.9 38.7 - 80.0 06/19/2018 [facility] Automated blood lymphocyte count as percentage ot total leukocytes 30.4 18.0 - 39.1 06/19/2018 [facility] Automated blood monocyte count as percentage of total leukocytes 8.8 4.4 - 11.3 06/19/2018 [facility] Automated blood eosinophil count as percentage of total leukocytes 1.3 0.0 - 6.0 06/19/2018 [facility] Automated blood basophil count as percentage of total leukocytes 0.4 0.0 - 1.0 06/19/2018 [facility] IM GRANULOCYTES % 0.2 0.0 - 1.0 06/19/2018 [facility] Automated blood neutrophil count 5.7 2.1 - 6.9 06/19/2018 [facility] Blood lymphocytes count (number/volume) 3.0 1.0 - 3.2 06/19/2018 [facility] Blood monocytes automated count (number/volume) 0.9 0.2 - 0.8 06/19/2018 [facility] Automated blood eosinophil count 0.1 0.0 - 0.4 06/19/2018 [facility] Automated blood basophil count (count/volume) 0.0 0.0 - 0.1 06/19/2018 [facility] Absolute Immature Granulocyte (auto 0.02 0 - 0.1 06/19/2018 [facility] Serum or plasma sodium measurement (moles/volume) 137 136 - 145 06/19/2018 [facility] Serum or plasma potassium measurement (moles/volume) 3.8 3.5 - 5.1 06/19/2018 [facility] Serum or plasma chloride measurement (moles/volume) 102 98 - 107 06/19/2018 [facility] Serum or plasma carbon dioxide, total measurement (moles/volume) 25 22 - 29 06/19/2018 [facility] Serum or plasma anion gap 13.8 8 - 16 06/19/2018 [facility] Serum or plasma urea nitrogen measurement (mass/volume) 30 7 - 26 06/19/2018 [facility] Serum or plasma creatinine measurement (mass/volume) 1.78 0.57 - 1.11 06/19/2018 [facility] Serum or plasma urea nitrogen/creatinine mass ratio 17 6 - 25 06/19/2018 [facility] Estimated glomerular filtration rate (GFR) determination 29 60 06/19/2018 [facility] Glucose measurement 232 74 - 118 06/19/2018 [facility] Serum or plasma calcium measurement (mass/volume) 9.9 8.4 - 10.2 06/19/2018 [facility] Serum or plasma total bilirubin measurement (mass/volume) 0.5 0.2 - 1.2 06/19/2018 [facility] Aspartate Amino Transf (AST/SGOT) 16 5 - 34 06/19/2018 [facility] Serum or plasma alanine aminotransferase measurement (enzymatic activity/volume) 10 0 - 55 06/19/2018 [facility] Serum or plasma protein measurement (mass/volume) 7.7 6.5 - 8.1 06/19/2018 [facility] Serum or plasma albumin measurement (mass/volume) 3.9 3.5 - 5.0 06/19/2018 [facility] Plasma globulin measurement (mass/volume) 3.8 2.3 - 3.5 06/19/2018 [facility] Serum or plasma albumin/globulin mass ratio 1.0 0.8 - 2.0 06/19/2018 [facility] Serum or plasma alkaline phosphatase measurement (enzymatic activity/volume) 108 40 - 150 06/19/2018 [facility] Serum or plasma creatine kinase measurement (enzymatic activity/volume) 70 29 - 168 06/19/2018 [facility] Serum or plasma creatine kinase MB measurement (mass/volume) 1.70 0 - 5.0 06/19/2018 [facility] Troponin I measurement by highly sensitive enzyme immunoassay 0.107 0 - 0.300 06/19/2018 [facility] Serum or plasma thyrotropin measurement by detection limit <=0.005 miu/l (units/volume) 0.979 0.350 - 4.940 06/19/2018 [facility] Urine color determination YELLOW YELLOW 04/27/2018 [facility] Urine clarity CLEAR CLEAR 04/27/2018 [facility] Specific gravity of Urine by Test strip 1.005 1.010 - 1.025 04/27/2018 [facility] Urine pH measurement by automated test strip 6 5 - 7 04/27/2018 [facility] Urine leukocyte esterase detection by dipstick NEGATIVE NEGATIVE 04/27/2018 [facility] Urine nitrite detection NEGATIVE NEGATIVE 04/27/2018 [facility] Urine protein measurement by test strip (mass/volume) NEGATIVE NEGATIVE 04/27/2018 [facility] Urine glucose detection NEGATIVE NEGATIVE 04/27/2018 [facility] Urine ketones detection by automated test strip NEGATIVE NEGATIVE 04/27/2018 [facility] Urine urobilinogen measurement by test strip (mass/volume) 1 0.2 - 1 04/27/2018 [facility] Urine total bilirubin measurement (mass/volume) NEGATIVE NEGATIVE 04/27/2018 [facility] Urine erythrocytes detection NEGATIVE NEGATIVE 04/27/2018 [facility] Automated urine sediment leukocyte count by microscopy (number/high power field) NONE 0 - 5 04/27/2018 [facility] Erythrocytes detection in urine sediment by light microscopy NONE 0 - 5 04/27/2018 [facility] Bacteria detection in urine sediment by light microscopy NONE NONE 04/27/2018 [facility] Epithelial cells detection in urine sediment by light microscopy MODERATE NONE 04/27/2018 [facility] Renal epithelial cells detection in urine sediment by light microscopy FEW NONE 04/27/2018 [facility] Prothrombin time (PT) in platelet poor plasma by coagulation assay 13.1 11.9 - 14.5 01/08/2018 [facility] INR in Platelet poor plasma by Coagulation assay 0.91 01/08/2018 [facility] Activated partial thromboplastin time (aPTT) in platelet poor plasma bycoagulation assay 27.0 23.8 - 35.5 01/08/2018 [facility] Pathology Reports No Data Provided for [...] DC Date Status Source Departed Emergency Room [id number] RAMAKRISHNA RUIZ MD 01/08/2018 01/08/2018 [facility] Departed Emergency Room [id number] RAMAKRISHNA RUIZ MD 04/27/2018 04/27/2018 [facility] Departed Emergency Room [id number] JAMES MOREL MD 06/19/2018 06/19/2018 [facility] Procedures Procedure Code Date Perfomer Comments Source X-ray of chest, two views [id number] 06/19/2018 [facility] Computed tomography of brain without radiopaque contrast [id number] 01/08/2018 [facility] Computed tomography of cervical spine without contrast [id number] 01/08/2018 [facility] CT maxillofacial area wo contrast [id number] 01/08/2018 [facility] X-ray of chest, single view [id number] 01/08/2018 [facility] Assessment and Plan No Data Provided for This Section Plan of Care Plan of Care Date Source Discharge Date 06/19/18 11:46pm Disposition HOME, SELF-CARE Condition at Discharge Stable Instructions/Education Provided Chest Pain - Chest Wall Forms Provided Work/School Excuse Prescriptions See Medication Section Referrals ALISON FRANCO DO Address: [address] [facility] [address] [place] [address] LINDA RIDDLE MD Address: [address] [facility] [address] [place], [place] [id number] Additional Instructions/Education 1. Please f/u with the chief of vital statistics provided for your paroxsymal a fib 06/19/2018 [facility] Social History Social History Date Source Smoking Status Start Date Stop Date Never Smoker 06/19/2018 [facility] Family History No Data Provided for This Section Advance Directives Order Name Results Value Date Source Advance Directives Advance Directives Directive Response Recorded Date/Time Does the patient have an advance directive? No 10/19/16 6:02am Do you have a Directive to Physician? No 06/19/18 10:01pm Do you have a Medical Power of Wellness Spa Manager? No 06/19/18 10:01pm Do you have an [...] rights and responsibilities? Yes 06/19/18 10:01pm 06/19/2018 [facility] Functional Status No Data Provided for This Section
--- OUTSIDE RECORDS SUMMARY | 2018-12-17 11:36 | XMS REPORT | Clinical Summary ---
Author Author [employer] Address Unknown Phone Unavailable Care Team Providers Care Magistrate Assistant Name Role Phone Luther Alvarado DO PCP [...] Lot Implanted Type Area Manufactur er 08/28/2018 [id number] / / [id number] Device Vasclr Clsr Baln Cath 10ml Cardiovasc N/A: N/A ACCESS Lkng Syr 5fr Ernandez Mynxgrip - ular CLOSURE [id number] [employer]plants [employer] Implanted: 11/12/2016 at [facility] (Quantity not on file) 08/28/2018 [id number] / / [id number] Device Vasclr Clsr Baln Cath 10ml Cardiovasc N/A: N/A ACCESS Lkng Syr 5fr Ernandez Mynxgrip - ular CLOSURE [id number] [employer] Implanted: 11/12/2016 at [facility] (Quantity not on file) Results Not on fileafter 12/16/2017 Insurance Type Payer Benefit Subscriber ID Effective Phone Address Plan / Dates Group HMO CIG[employer] CIGNA xxxxxxxxx 2016-P [facility] Advance Directives For more information, please contact: [phone] Patient Electric Crane Operator Explanation Type Date Recorded Advance Directives, 09/18/2017 10:37 PM Living Will and Medical Power of Director Of Program Management
[2018-12-17] MEDS ORDERED: ESCITALOPRAM OX10 MG PO (11:50)
[2018-12-17] MEDS ORDERED: AMLODIPINE BESY10 MG PO (11:50)
[2018-12-17] MEDS ORDERED: RESTORIL30 MG PO (11:50)
[2018-12-17] MEDS ORDERED: HYDRALAZINE HCL25 MG PO (11:50)
[2018-12-17] MEDS ORDERED: LOW DOSE ASPIRI81 MG PO (11:50)
[2018-12-17] MEDS ORDERED: METOPROLOL TARTRATE INJ 1 MG/ML VIAL IV ONE (12:15)
--- NOTE | 2018-12-17 12:25 | NUR ---
Bedside report received from LIAM Francis. Pt sitting up in bed. RR even and unlabored. Pt remains on NIBP, pulse ox, cardiac monitoring and O2 via NC @ 2L. Call light in reach. Bed locked in lowest positon. Bed rails up x2. Spouse at bedside. Will continue to monitor.
--- NOTE | 2018-12-17 12:30 | NUR ---
Waffle mattress applied to stretcher for pt comfort.
[2018-12-17] MEDS ORDERED: DILTIAZEM HCL 180 MG CAP ER PO SCH (13:00)
--- NOTE | 2018-12-17 13:11 | NUR ---
Pt sitting up comfortably. Call light in reach. RR even and unlabored. NAD noted. Will continue to monitor.
--- NOTE | 2018-12-17 13:15 | NUR ---
Pharmacy contacted regarding Cardizem 180mg ER not in the pyxis, stated pharmacist will be coming to unit to fill shortly.
--- NOTE | 2018-12-17 13:49 | NUR ---
Contacted Pharmacy again medication still not in Pyxis, stated will have them bring to unit.
[2018-12-17 14:26] LABS: CLARITY,URINE SL CLOUDY (CLEAR); COLOR,URINE YELLOW (YELLOW)
[2018-12-17 14:27] LABS: BILIRUBIN,URINE NEGATIVE (NEGATIVE); KETONES,URINE NEGATIVE (NEGATIVE); LEUKOCYTE ESTERASE ,URINE NEGATIVE (NEGATIVE); NITRITE,URINE NEGATIVE (NEGATIVE); PROTEIN,URINE DIPSTICK NEGATIVE (NEGATIVE); URINE UROBILINOGEN 0.2 mg/dL (0.2 - 1)
[2018-12-17 14:46] LABS: EPITHELIAL CELLS,URINE FEW /LPF
[2018-12-17] MEDS ORDERED: ENOXAPARIN INJ 80 MG/0.8 ML SYR SC ONE (14:53)
--- NOTE | 2018-12-17 14:53 | NUR ---
H&P cc: chest palpitatoin HPI: 63yoF,PCP Dr.J. Alvarado, cardio , heart monitor triggered at home, and called by cardio office to go to hospital. Pt asymptomatic. PMH: HTN, mood d/o, PAF s/p cardiac ablation, DM PShx: C.section x3; appendectomy, hysterectomy, TKR, pericardial window, cardiac ablation, foot x2 Allergies; see emr Fh/SH; ; no cigs/etoh Meds; see MAR ROS: no f/c/s/n/V/D/STERN/vision changes/cp/sob/skin rash/back pain/dizziness v/s; revd PE: nad anicteric n1s2; RAPID HR mod bs soft nt nd no e/t a&ox3; carmichael skin dry n. affect labs/meds; revd A/P: 63yoF A.fib with RVR Mariely Obesity BMI 30.4 Mood d/o Hyperglycemia PLAN AV blockade; cardio eval; echo; TSH; lovenox; bid IVF hab1c/lipids pepcid; lovenox bid dispo: Ric Romero MD, PhD
--- NOTE | 2018-12-17 15:58 | NUR ---
Pt sitting up comfortably. RR even and unlabored. NAD noted. Vitals stable. WIll continue to monitor.
[2018-12-17 16:41] LABS: CHOL/HDL RATIO 2.4 (3.0-3.6)
--- NOTE | 2018-12-17 16:49 | NUR ---
Care hand off and bedside report given to BASSEM Jade. Pt sitting up in bed comfortably .RR even and unlabored. NAD noted. Pt updated on plan of care and bed assignment status. Call light remains in patients reach. Bed locked in lowest position.
--- NOTE | 2018-12-17 16:50 | NUR ---
WALKING ROUNDS WITH TOPHER LUEVANO
[2018-12-17] MEDS: FAMOTIDINE 20 MG TAB PO SCH (17:15)
--- NOTE | 2018-12-17 18:45 | NUR ---
Report received. Assumed care. Admission history, Initial admission assessment & vaccine screening completed.
[2018-12-17 19:00] VITALS: BP 120/78
[2018-12-17 19:07] VITALS: BP 121/80
[2018-12-17 19:09] VITALS: BP 121/80
[2018-12-17] MEDS ORDERED: DILTIAZEM HCL IV 5MG/ML 25 ML VIAL ONE (19:45)
[2018-12-17] MEDS ORDERED: SODIUM CHLORIDE 0.9% 100 ML ONE (19:45)
[2018-12-17 20:00] VITALS: BP 109/76
[2018-12-18] VITALS (15 sets, daily range): BP systolic 112–156; BP diastolic 73–100
[2018-12-18 00:32] LABS: CREATINE KINASE MB 1.4 ng/mL (0-5.0)
[2018-12-18] MEDS: DILTIAZEM HCL 125 ML IV SCH (02:55)
[2018-12-18] MEDS ORDERED: SODIUM CHLORIDE 0.9% 100 ML ONE (02:55)
[2018-12-18] MEDS ORDERED: DILTIAZEM HCL IV 5MG/ML 25 ML VIAL ONE (02:56)
[2018-12-18 05:33] LABS: BASOPHILS % 0.5 % (0.0-1.0); EOSINOPHILS # (AUTO) 0.1 (0.0-0.4); EOSINOPHILS % 1.5 % (0.0-6.0); HEMATOCRIT 36.5 % (34.2-44.1); HEMOGLOBIN 11.4 g/dL (12.0-16.0); LYMPHOCYTES # (AUTO) 2.5 (1.0-3.2); LYMPHOCYTES % 30.7 % (18.0-39.1); MEAN CORPUSCULAR HEMOGLOBIN 24.6 pg (28-32); MEAN CORPUSCULAR HGB CONC 31.2 g/dL (31-35); MEAN CORPUSCULAR VOLUME 78.7 fL (81-99); MONOCYTES # (AUTO) 0.7 (0.2-0.8); MONOCYTES % 8.5 % (4.4-11.3); NEUTROPHILS # (AUTO) 4.8 (2.1-6.9); NEUTROPHILS % 58.6 % (38.7-80.0); PLATELET COUNT 272 x10e3/uL (140-360); RED BLOOD COUNT 4.64 x10e6/uL (3.6-5.1); RED CELL DISTRIBUTION WIDTH 14.1 % (11.7-14.4)
[2018-12-18] MEDS: ENOXAPARIN INJ 80 MG/0.8 ML SYR SC SCH ×2 (06:00→17:49)
[2018-12-18 06:08] LABS: ALBUMIN 3.3 g/dL (3.5-5.0); ALBUMIN/GLOBULIN RATIO 1.1 (0.8-2.0); ANION GAP 10.7 mmol/L (8-16); CALCIUM 9.3 mg/dL (8.4-10.2); CHOL/HDL RATIO 2.6 (3.0-3.6); CREATININE, SERUM 1.11 mg/dL (0.57-1.11); POTASSIUM 3.7 mmol/L (3.5-5.1)
--- NOTE | 2018-12-18 06:26 | NUR ---
IM- progress note O/N no events ROS: no f/c/s/n/V/D/STERN/vision changes/cp/sob/skin rash/back pain/dizziness v/s; revd PE: nad anicteric n1s2; RAPID HR mod bs soft nt nd no e/t a&ox3; carmichael skin dry n. affect labs/meds; revd A/P: 63yoF A.fib with RVR Mariely Obesity BMI 30.4 Mood d/o Hyperglycemia PLAN AV blockade; cardio eval; echo; TSH; lovenox; bid IVF hab1c/lipids pepcid; lovenox bid dispo: 9-20 Hba1c/LDL 9.5/86; HR controlled; cct>35mins Ric Romero MD, PhD
--- NOTE | 2018-12-18 07:10 | NUR ---
ASSESSMENT: Spiritual concern Referred by RN. Pt worried about illness. Pt states she and her are raising her 10 y/o granddaughter. Pt identifies as [employer]. Intervention: Provided hospitality and empathic listening. Facilitated illness review. Provided prayer and information on how to reach chief of safety and protection, if needed. Outcome: No need to follow at this time. TIM BERKOWITZ Fleet Assistant Spiritual Care Department O: [phone] Pager: [phone] ([phone] number calling from)
--- NOTE | 2018-12-18 07:27 | Consultation ---
DATE OF CONSULTATION: 12/17/2018 Cardiology Consultation REQUESTING PHYSICIAN: Peter Ku MD REASON FOR CONSULTATION: Atrial fibrillation with rapid ventricular response. HISTORY OF PRESENT ILLNESS: This is a 63-year-old woman with history of hypertension, diabetes mellitus, atrial fibrillation, status post prior PVI and pericardial window, who presents with complaints of chest heaviness for the last couple of days. She reports this pain was 6 to 7/10 in severity without shortness of breath and diaphoresis yesterday. There was no radiation, edema, orthopnea, or PND. She was seen in Cardiology Clinic and instructed to present to the ER due to her atrial fibrillation with rapid ventricular response. REVIEW OF SYSTEMS: Negative except as per HPI. PAST MEDICAL HISTORY: 1. Hypertension. 2. Diabetes mellitus. 3. Atrial fibrillation, status post PVI. 4. Pericardial window. PAST SURGICAL HISTORY: 1. section x3. 2. Hysterectomy. 3. Appendectomy. 4. Right total knee replacement. 5. Foot surgery x3. ALLERGIES: PLEASE SEE EMR. MEDICATIONS: Please see medication list. SOCIAL HISTORY: Denies tobacco, alcohol, or illicit drugs. FAMILY HISTORY: Unknown. PHYSICAL EXAMINATION: VITAL SIGNS: Vitals reviewed. GENERAL: Awake, alert, in no acute distress. HEENT: Normocephalic, atraumatic. Pupils equal. No scleral icterus. NECK: Supple. No thyromegaly or cervical lymphadenopathy. No carotid bruits. LUNGS: Clear to auscultation bilaterally. No wheezes or crackles. CARDIOVASCULAR: Tachycardic, irregularly irregular. Normal S1, S2. ABDOMEN: Soft and nontender. EXTREMITIES: No edema. NEUROLOGIC: Nonfocal exam. EKG: Supraventricular tachycardia, ST and T-wave abnormality, consider inferolateral ischemia. TELEMETRY: 1. Atrial fibrillation with rapid ventricular response. 2. Chest pain. 3. Hypertension. 4. Diabetes mellitus. 5. History of pericardial window. RECOMMENDATIONS: Trend cardiac enzymes to rule out myocardial infarction. Obtain echocardiogram once rate is controlled. Continue diltiazem drip. Once rate is controlled, the patient will need nuclear stress test to evaluate for ischemia. Thank you for this consult. We will continue to follow. Rayne Lamb MD ABS/MODL /[id number]
[2018-12-18] MEDS: FAMOTIDINE 20 MG TAB PO SCH ×2 (07:39→17:49)
[2018-12-18] MEDS: ASPIRIN 325 MG TAB PO SCH (08:24)
[2018-12-18] MEDS: DILTIAZEM HCL 180 MG CAP ER PO SCH (08:24)
[2018-12-18] MEDS: ESCITALOPRAM OXALATE 10 MG TAB PO SCH (08:24)
[2018-12-18] MEDS ORDERED: REGADENOSON 0.4 MG/5 ML SYR IV ONE (14:47)
--- NOTE | 2018-12-18 21:05 | Progress Note ---
DATE: 12/18/2018 Cardiology Progress Note SUBJECTIVE: The patient denies chest pain or shortness of breath. OBJECTIVE: VITAL SIGNS: Temperature 97 degrees, pulse 69, respiratory rate 20, blood pressure 129/100, and oxygen saturation 98% on room air. GENERAL: Awake and alert, in no acute distress. LUNGS: Clear to auscultation bilaterally. No wheezes or crackles. CARDIOVASCULAR: Normal rate, regular rhythm. No murmur. Normal S1 and S2. ABDOMEN: Soft and nontender. EXTREMITIES: No edema. CARDIAC MEDICATIONS: 1. Nexium 80 mg subcu q.12 hours. 2. Diltiazem 360 mg p.o. daily. LABORATORY DATA: WBC 8.22, hemoglobin 11.4, hematocrit 36.5, and platelets 272. Sodium 135, potassium 3.7, chloride 104, CO2 of 24, BUN 14, and creatinine 1.11. Troponin 0.049. Cholesterol 154, LDL 75, HDL 59, and triglycerides 98. TELEMETRY: Atrial fibrillation. IMPRESSION: 1. Atrial fibrillation, rate controlled. 2. Chest pain. 3. Hypertension. 4. Diabetes mellitus. 5. History of pericardial window. RECOMMENDATIONS: No evidence of myocardial infarction on serial cardiac biomarkers. The heart rate is now controlled. Wean off diltiazem drip. We will proceed with nuclear stress test to evaluate for ischemia given her multiple risk factors. Further recommendations pending test results. Thank you for this consult. We will continue to follow. Rayne Lamb MD ABS/MODL /[id number]
[2018-12-18] MEDS: TEMAZEPAM 15 MG CAP PO PRN (21:14)
--- NOTE | 2018-12-18 22:11 | Myoview Stress Test ---
DATE OF STUDY: 12/18/2018 12:26:00 Stress Test - Treadmill ONLY PROCEDURE: Rest/stress single isotope SPECT imaging with pharmacologic stress and gated SPECT imaging. INDICATION: Chest pain. PROCEDURE IN DETAIL: Pharmacologic stress testing was performed with regadenoson per protocol. The heart rate was 74 beats per minute at rest and increased to 109 beats per minute during the regadenoson infusion. The rest blood pressure was 134/70 mmHg and decreased to 122/72 mmHg, which is a normal response. The resting electrocardiogram demonstrated atrial fibrillation. There were nonspecific ST and T-wave abnormalities during stress and recovery. Myocardial perfusion imaging was performed at rest following the injection 11 mCi of tetrofosmin. At peak pharmacologic effect, the patient was injected with 33 mCi of tetrofosmin. Gated post-stress tomographic imaging was performed. FINDINGS: The overall quality of study is fair. Left ventricular cavity is noted to be of normal size on the rest and stress studies. SPECT images demonstrate homogeneous tracer distribution throughout the myocardium. Gated SPECT imaging reveals normal myocardial thickening and wall motion. IMPRESSION: Myocardial perfusion imaging is normal. Overall left ventricular systolic function was normal without regional wall motion abnormalities. Rayne Lamb MD ABS/MODL /[id number]
[2018-12-19] VITALS (8 sets, daily range): BP systolic 131–168; BP diastolic 70–102
[2018-12-19] MEDS: ENOXAPARIN INJ 80 MG/0.8 ML SYR SC SCH ×2 (05:51→18:40)
--- NOTE | 2018-12-19 06:10 | NUR ---
received patient aaox3, resp even and unlabored, denies pain, no distress observed. tele #[phone] a.fib . no needs voiced at this time. bed locked and in lowest position, call light within easy reach. instructed to call for assistance as needed, patient verbalized understanding. will continue to monitor.
--- NOTE | 2018-12-19 06:23 | NUR ---
Transferred patient to room 101 MS1 via wheelchair, escorted by RN, with all patient belongings in patient's possession. Report given to Lluvia LUEVANO. No acute signs of distress noted.
--- NOTE | 2018-12-19 07:46 | NUR ---
IM- progress note O/N no events ROS: no f/c/s/n/V/D/STERN/vision changes/cp/sob/skin rash/back pain/dizziness v/s; revd PE: nad anicteric n1s2; RAPID HR mod bs soft nt nd no e/t a&ox3; carmichael skin dry n. affect labs/meds; revd A/P: 63yoF A.fib with RVR Mariely Obesity BMI 30.4 Mood d/o Hyperglycemia PLAN AV blockade; cardio eval; echo; TSH; lovenox; bid IVF hab1c/lipids pepcid; lovenox bid dispo: 12-18 Hba1c/LDL 9.; HR controlled; cct>35mins 12/19 f/u stress test= normal; continued HR control; d/c planning; Ric Romero MD, PhD
[2018-12-19] MEDS: ASPIRIN 325 MG TAB PO SCH (09:26)
[2018-12-19] MEDS: ESCITALOPRAM OXALATE 10 MG TAB PO SCH (09:26)
[2018-12-19] MEDS: DILTIAZEM HCL 180 MG CAP ER PO SCH (09:28)
[2018-12-19] MEDS: DILTIAZEM HCL 125 ML IV SCH (09:30)
[2018-12-19] MEDS: FAMOTIDINE 20 MG TAB PO SCH ×2 (09:30→18:40)
[2018-12-19] MEDS: AMLODIPINE BESYLATE 5 MG TAB PO SCH (18:40)
[2018-12-19] MEDS: METOPROLOL TARTRATE 50 MG TAB PO SCH (18:42)
--- NOTE | 2018-12-19 19:00 | NUR ---
HANDOFF REPORT TO ONCOMING NURSE PATIENT IN BED AWAKE, ALERT AND ORIENTED X3, NO S/S OF DISTRESS. INSTRUCTED TO USE CALL LIGHT WHEN NEEDING ASSISTANCE.
[2018-12-19] MEDS: TEMAZEPAM 15 MG CAP PO PRN (21:30)
[2018-12-20] VITALS: BP 121/77
[2018-12-20 04:00] VITALS: BP 134/85
[2018-12-20] MEDS: ENOXAPARIN INJ 80 MG/0.8 ML SYR SC SCH (06:15)
[2018-12-20] MEDS: METOPROLOL TARTRATE 50 MG TAB PO SCH (08:02)
[2018-12-20 08:03] VITALS: BP 122/76
[2018-12-20 08:05] VITALS: BP 122/76
[2018-12-20] MEDS: FAMOTIDINE 20 MG TAB PO SCH (08:05)
[2018-12-20] MEDS: ASPIRIN 325 MG TAB PO SCH (08:05)
[2018-12-20] MEDS: DILTIAZEM HCL 180 MG CAP ER PO SCH (08:05)
[2018-12-20] MEDS: ESCITALOPRAM OXALATE 10 MG TAB PO SCH (08:05)
[2018-12-20] MEDS ORDERED: DILTIAZEM 24HR180 MG PO (08:07)
[2018-12-20] MEDS ORDERED: ASPIRIN325 MG PO (08:07)
--- NOTE | 2018-12-20 08:09 | NUR ---
D/C summary Principal dx: A.fib with RVR Mariely Secondary Dx: Obesity BMI 30.4 Mood d/o Hyperglycemia DM PLAN AV blockade; cardio eval; echo; TSH; lovenox; bid IVF hab1c/lipids pepcid; lovenox bid dispo: 12-18 Hba1c/LDL 9.; HR controlled; cct>35mins 12/19 f/u stress test= normal; continued HR control; d/c planning; d/c home on eliquis f/u pcp 1 week and 2 weeks stable d/c >35mins Ric Romero MD, PhD
[2018-12-20] MEDS: AMLODIPINE BESYLATE 5 MG TAB PO SCH (08:24)
[2018-12-20] MEDS ORDERED: ELIQUIS PO (09:04)
[2018-12-20] MEDS ORDERED: PANTOPRAZOLE SO40 MG PO (09:04)
[2018-12-20] MEDS ORDERED: METOPROLOL TART50 MG PO (09:13)
--- NOTE | 2018-12-20 09:36 | NUR ---
SPOKE WITH MD VENKATESH BUSTAMANTE DISCHARGE PT DISCHARGE INSTRUCTIONS GIVEN. PT VERBALIZED UNDERSTANDING IV DC PRESSURE DRESSING APPLIED AND TAPED PT IS READY FOR DISCHARGE
--- NOTE | 2018-12-20 09:49 | NUR ---
PT DC TO HOME AT THIS TIME
--- NOTE | 2018-12-20 12:54 | Progress Note ---
DATE: Cardiology Progress Note SUBJECTIVE: The patient endorses occasional palpitation, but otherwise feels well. Denies any chest pain or shortness of breath. OBJECTIVE: VITAL SIGNS: Temperature 97.0, pulse 60, respiratory rate 20, blood pressure 168/88, oxygen saturation 97% on room air. GENERAL: Alert and oriented x3. Resting comfortably in bed, does not appear to be in acute distress. LUNGS: Clear to auscultation throughout. No wheezing. No rhonchi or crackles. CARDIOVASCULAR: Normal rate and rhythm. Normal S1, S2. No murmur or gallop. ABDOMEN: Soft, nontender. EXTREMITIES: Lower extremities, no edema. CARDIOVASCULAR MEDICATIONS: Diltiazem 360 mg p.o. daily, aspirin 325 p.o. daily, Lovenox 80 mg subcu daily, amlodipine 5 mg p.o. daily, metoprolol 75 mg p.o. b.i.d. LABORATORY DATA: No new labs today. TELEMETRY: Atrial fibrillation with moments of RVR. IMPRESSION: 1. Atrial fibrillation with moments of rapid ventricular response. 2. Atypical chest pain with abnormal stress test yesterday. 3. Hypertension. 4. Diabetes mellitus. 5. History of pericardial window. RECOMMENDATIONS: There is no evidence of myocardial infarction on serial cardiac biomarkers and also stress test yesterday revealed was normal without any signs of ischemia. Medications have been adjusted today for better blood pressure control and also rate control. Plan for discharge tomorrow depending on her vital signs. We will continue to follow patient very closely. Thank you for this consultation. Dictated by Zayra Thornton NP MD RACHEL StoddardV/MODL /[id number]
== END 2018-12-20 09:49 | disposition home or self-care (01) | DRG 309 ==
LOC: ER 09:52 → ERHOLD 10:36 → ICU 18:30 → MED/SURG 12-19 06:17
PROVIDERS: ADMIT Internal Medicine; ATTEND Internal Medicine
DX: I48.2 Chronic atrial fibrillation (principal); N17.9 Acute kidney failure, unspecified; R07.9 Chest pain, unspecified; E11.65 Type 2 diabetes mellitus with hyperglycemia; I10 Essential (primary) hypertension; M32.9 Systemic lupus erythematosus, unspecified; Z88.5 Allergy status to narcotic agent; Z88.8 Allergy status to other drugs, medicaments and biological substances; E66.9 Obesity, unspecified; Z68.30 Body mass index [BMI] 30.0-30.9, adult; F39 Unspecified mood [affective] disorder; Z98.890 Other specified postprocedural states; R07.89 Other chest pain; Z79.82 Long term (current) use of aspirin; Z79.01 Long term (current) use of anticoagulants
CPT/HCPCS: 36415; 71045; 78452; 80053; 80061; 81001; 82550; 82553; 82948; 83036; 83735; 84443; 84484; 85025; 85610; 85730; 87086; 93005; 93017; 93306; 99284; A9502; J1650; J7040; J7050

== ENCOUNTER 2018-12-28 16:05 | Emergency (ER) | payer MEDICARE ==
[~2018-12-28] VITALS: Ht 175.3 cm; Wt 97.5 kg
[~2018-12-28 16:05] MED LIST: AMLODIPINE BESY10 MG PO; ASPIRIN325 MG PO; DILTIAZEM 24HR180 MG PO; ELIQUIS PO; ESCITALOPRAM OX10 MG PO; HYDRALAZINE HCL25 MG PO; LOW DOSE ASPIRI81 MG PO; METOPROLOL TART50 MG PO; PANTOPRAZOLE SO40 MG PO; RESTORIL30 MG PO
[2018-12-28] MEDS ORDERED: AMIODARONE HCL 360MG 200 ML IV SCH ×2 (16:45→18:00)
[2018-12-28] MEDS ORDERED: ASPIRIN 81 MG CHEW TAB PO ONE (16:45)
[2018-12-28] MEDS ORDERED: AMIODARONE HCL 150MG 100 ML IV SCH (16:45)
[2018-12-28 16:53] LABS: BASOPHILS % 0.3 % (0.0-1.0); EOSINOPHILS # (AUTO) 0.1 (0.0-0.4); EOSINOPHILS % 1.3 % (0.0-6.0); HEMATOCRIT 36.5 % (34.2-44.1); HEMOGLOBIN 11.8 g/dL (12.0-16.0); LYMPHOCYTES # (AUTO) 2.2 (1.0-3.2); LYMPHOCYTES % 21.7 % (18.0-39.1); MEAN CORPUSCULAR HEMOGLOBIN 25.1 pg (28-32); MEAN CORPUSCULAR HGB CONC 32.3 g/dL (31-35); MEAN CORPUSCULAR VOLUME 77.5 fL (81-99); MONOCYTES # (AUTO) 0.8 (0.2-0.8); NEUTROPHILS # (AUTO) 6.8 (2.1-6.9); NEUTROPHILS % 68.3 % (38.7-80.0); PLATELET COUNT 385 x10e3/uL (140-360); RED BLOOD COUNT 4.71 x10e6/uL (3.6-5.1); RED CELL DISTRIBUTION WIDTH 14.6 % (11.7-14.4)
[2018-12-28] MEDS ORDERED: AMIODARONE 900MG 500 ML IV SCH ×2 (17:00→23:01)
--- NOTE | 2018-12-28 17:00 | NUR ---
RADIOLOGY AT BEDSIDE AT THIS TIME FOR CXR.
[2018-12-28 17:02] LABS: INR 1.13; PROTHROMBIN TIME 15.1 seconds (11.9-14.5)
[2018-12-28 17:03] LABS: PARTIAL THROMBOPLASTIN TIME 28.9 seconds (23.8-35.5)
[2018-12-28 17:11] LABS: ALBUMIN 3.6 g/dL (3.5-5.0); CALCIUM 9.6 mg/dL (8.4-10.2); CREATININE, SERUM 1.76 mg/dL (0.57-1.11)
[2018-12-28 17:14] LABS: BILIRUBIN,URINE NEGATIVE (NEGATIVE); CLARITY,URINE SL CLOUDY (CLEAR); COLOR,URINE YELLOW (YELLOW); KETONES,URINE NEGATIVE (NEGATIVE); LEUKOCYTE ESTERASE ,URINE NEGATIVE (NEGATIVE); NITRITE,URINE NEGATIVE (NEGATIVE); PROTEIN,URINE DIPSTICK NEGATIVE (NEGATIVE); URINE UROBILINOGEN 0.2 mg/dL (0.2 - 1)
--- NOTE | 2018-12-28 17:17 | NUR ---
DR. PHAM AT BEDSIDE UPDATING PT ON PLAN OF CARE PER CONSULT WITH DR. RIDDLE AND INTENT TO TRANSFER TO [facility]; DIRECTOR LEARNING AND DEVELOPMENT AT BEDSIDE INITIATING TRANSFER AND OBTAINING APPROVAL FROM PT AT THIS TIME.
--- NOTE | 2018-12-28 17:17 | Diagnostic Imaging Report ---
EXAMINATION: CHEST SINGLE (PORTABLE) INDICATION: Atrial fibrillation, shortness of breath COMPARISON: Chest radiograph of 12/17/2018 FINDINGS: LINES/TUBES:Loop recorder unchanged. LUNGS:The lungs are well-inflated. There is perihilar fullness and indistinctness of the pulmonary vasculature. PLEURA:No pleural effusion or pneumothorax. MEDIASTINUM:Cardiomediastinal silhouette is mildly enlarged. Atherosclerotic calcifications of the thoracic aorta. BONES/SOFT TISSUES:No acute osseous injury. ABDOMEN:No free air under the diaphragm. IMPRESSION: Mild cardiomegaly and mild pulmonary edema. Signed by: Whitney Rodriges MD on 12/28/2018 5:14 PM
[2018-12-28 17:20] LABS: CREATINE KINASE MB 0.5 ng/mL (0-5.0)
[2018-12-28 17:27] LABS: BACTERIA,URINE FEW /HPF
[2018-12-28 17:28] LABS: EPITHELIAL CELLS,URINE MODERATE /LPF
--- NOTE | 2018-12-28 18:00 | NUR ---
REPORT CALLED TO [facility] ICU 4038 BED 6; REPORT GIVEN IN FULL TO [employer] MANAGER NURSE.
--- NOTE | 2018-12-28 18:10 | NUR ---
TRANSPORT AMBULANCE SERVICE CALLED BY BOOM WORKER, PT MADE AWARE AT THIS TIME.
[2018-12-28 19:35] VITALS: BP 136/89
== END 2018-12-28 19:00 | disposition short-term general hospital (02) ==
LOC: ER 16:05
DX: R07.89 Other chest pain (principal); I48.91 Unspecified atrial fibrillation; I10 Essential (primary) hypertension; E11.9 Type 2 diabetes mellitus without complications; I25.10 Atherosclerotic heart disease of native coronary artery without angina pectoris; M32.9 Systemic lupus erythematosus, unspecified
CPT/HCPCS: 36415; 71045; 80053; 81001; 82550; 82553; 84484; 85025; 85610; 85730; 93005; 99284

== ENCOUNTER 2020-04-09 19:05 | Emergency (ER) | payer MEDICARE ==
[~2020-04-09] VITALS: Ht 175.3 cm; Wt 97.5 kg
[2020-04-09] MEDS ORDERED: HYDROCODONE/APAP 10MG-325MG TAB PO ONE (20:45)
[2020-04-09] MEDS ORDERED: NORCO 5-325 TA1 EACH PO (22:29)
[2020-04-09] MEDS ORDERED: ONDANSETRON HCL 4 MG ORAL DISINTEGRATING TAB PO ONE (23:15)
[2020-04-09] MEDS ORDERED: ONDANSETRON HCL 4 MG ORAL DISINTEGRATING TAB ONE (23:18)
[2020-04-09 23:36] VITALS: BP 165/96
== END 2020-04-09 23:49 | disposition home or self-care (01) ==
LOC: ER 19:21
DX: S80.02XA Contusion of left knee, initial encounter (principal); W18.30XA Fall on same level, unspecified, initial encounter; Y92.008 Other place in unspecified non-institutional (private) residence as the place of occurrence of the external cause; I10 Essential (primary) hypertension; E11.9 Type 2 diabetes mellitus without complications; I25.10 Atherosclerotic heart disease of native coronary artery without angina pectoris; M32.9 Systemic lupus erythematosus, unspecified; Z98.84 Bariatric surgery status
CPT/HCPCS: 73562; 73590; 73610; 99284; Q0162

== ENCOUNTER → 2021-04-16 | Day surgery (SDC) | payer MEDICARE ==
[2021-04-13 09:20] LABS: BASOPHILS # (AUTO) 0.1 (0.0-0.1); BASOPHILS % 0.9 % (0.0-1.0); EOSINOPHILS # (AUTO) 0.2 (0.0-0.4); EOSINOPHILS % 2.6 % (0.0-6.0); HEMATOCRIT 45.2 % (34.2-44.1); HEMOGLOBIN 14.1 g/dL (12.0-16.0); LYMPHOCYTES # (AUTO) 1.9 (1.0-3.2); LYMPHOCYTES % 26.5 % (18.0-39.1); MEAN CORPUSCULAR HEMOGLOBIN 28.5 pg (28-32); MEAN CORPUSCULAR HGB CONC 31.2 g/dL (31-35); MEAN CORPUSCULAR VOLUME 91.5 fL (81-99); MONOCYTES # (AUTO) 0.6 (0.2-0.8); MONOCYTES % 8.4 % (4.4-11.3); NEUTROPHILS # (AUTO) 4.3 (2.1-6.9); NEUTROPHILS % 61.5 % (38.7-80.0); PLATELET COUNT 229 x10e3/uL (140-360); RED BLOOD COUNT 4.94 x10e6/uL (3.6-5.1); RED CELL DISTRIBUTION WIDTH 12.5 % (11.7-14.4)
[2021-04-13 09:58] LABS: ANION GAP 12.1 mmol/L (8-16); CALCIUM 9.8 mg/dL (8.4-10.2); CREATININE, SERUM 1.06 mg/dL (0.57-1.11); POTASSIUM 4.1 mmol/L (3.5-5.1)
[~2021-04-16] MED LIST changes: +ACETAMINOPHEN 1000 MG/100 ML IV PRN; +ACETAMINOPHEN 650 MG SUPP PR PRN; +ASPIRIN 325 MG TAB PO SCH; +ASPIRIN81 MG PO; +CARVEDILOL12.5 MG PO; +CELECOXIB 200 MG CAP ONE; +CELECOXIB 200 MG CAP PO SCH; +Cefazolin 1 GM in SODIUM CHLORIDE 0.9% 50ML 50 ML IV SCH; +DEXAMETHASONE SOD PHOS 10 MG/1 ML VIAL ONE; +DIPHENHYDRAMINE HCL INJ 50 MG/ML VIAL IV PRN; +DOCUSATE SODIUM 100 MG CAP PO PRN; +FENTANYL CITRATE/PF 100MCG/2 ML INJ ONE; +GABAPENTIN 300 MG CAP ONE; +GLIPIZIDE5 MG PO; +GLYCOPYRROLATE INJ 0.2 MG/ML VIAL ONE; +HYDROCODONE/APAP 5MG-325MG TAB PO PRN; +HYDROCODONE/APAP 7.5MG-325MG 1 EA TAB ONE; +HYDROCODONE/APAP 7.5MG-325MG 1 EA TAB PO PRN; +HYDROMORPHONE 1MG/1ML INJ ONE; +KETOROLAC TROMETHAMINE 30 MG/ML VIAL IV PRN; +LIDOCAINE HCL 2% LOCAL INJ 5 ML SDV VIAL INJ ONE; +LYRICA75 MG PO; +MIDAZOLAM HCL 2 MG/2 ML VIAL ONE; +MOBIC7.5 MG PO; +NEOSTIGMINE 1 MG/ML 10ML VIAL ONE; +NORCO 5-325 TA1 EACH PO; +ONDANSETRON HCL INJ 2MG/ML 2ML 2 MG/ML VIAL IV PRN; +ONDANSETRON HCL INJ 2MG/ML 2ML 2 MG/ML VIAL ONE; +POVIDONE IODINE 0.05% 0.05 % ML PO ONE; +PROPOFOL IV EMULSION 10 MG/ML 20 ML VIAL ONE; +ROCURONIUM BROMIDE 10 MG/ML 5ML VIAL IV ONE; +ROPIVACAINE 0.5% 5 MG/ML 30 ML SDV ONE; +ROPIVACAINE 246.25 MG, EPINEPHRINE HCL 1:1000 1ML 0.5 MG, CLONIDINE HCL 0.08 MG, KETORO... INJ ONE; +SEVOFLURANE INHAL SOLN 250 ML PEN BTL ONE; +SODIUM CHLORIDE 0.9% 1000ML 1,000 ML IV SCH; +SODIUM CHLORIDE 0.9% 500ML 500 ML ONE; +SODIUM CHLORIDE 0.9% 50ML 100 ML ONE; +TRANEXAMIC ACID 1,000 MG/10 ML ML ONE; +Vancomycin IV 1,000 MG ONE; +ZOLPIDEM TARTRAT5 MG PO; +ZOLPIDEM TARTRATE 5 MG TAB PO PRN
[2021-04-16 14:55] VITALS: BP 121/74
== END | disposition home or self-care (01) ==
LOC: OR 06:02
PROVIDERS: ATTEND Specialist
DX: M17.12 Unilateral primary osteoarthritis, left knee (principal); Z96.651 Presence of right artificial knee joint; E11.9 Type 2 diabetes mellitus without complications; I10 Essential (primary) hypertension; I48.91 Unspecified atrial fibrillation; I44.0 Atrioventricular block, first degree; K21.9 Gastro-esophageal reflux disease without esophagitis; F32.A Depression, unspecified; Z88.6 Allergy status to analgesic agent; Z88.8 Allergy status to other drugs, medicaments and biological substances; Z01.810 Encounter for preprocedural cardiovascular examination; Z01.812 Encounter for preprocedural laboratory examination; Z20.822 Contact with and (suspected) exposure to COVID-19; Z79.82 Long term (current) use of aspirin; Z79.84 Long term (current) use of oral hypoglycemic drugs; Z79.899 Other long term (current) drug therapy
CPT/HCPCS: 27447; 36415 ×2; 73560; 80048; 82948; 85025; 86850; 86900; 93005; 97110; 97116; 97161; C1713 ×2; C1776 ×2; J0171; J0690; J1100; J1170; J1885; J2001; J2250; J2405; J2704; J2710; J2795; J3010; J3370; J7040; U0002

== ENCOUNTER 2023-01-16 11:03 | Inpatient (IN) | payer MEDICARE ==
[2023-01-16] VITALS (11 sets, daily range): BP systolic 118–139; BP diastolic 97–112; PULSE 115–125; RESP 14–29; TEMP 98.1–98.6; O2SAT 94–99
[~2023-01-16] VITALS: Ht 175.3 cm; Wt 97.5 kg
[~2023-01-16 11:03] MED LIST changes: -ACETAMINOPHEN 1000 MG/100 ML IV PRN; -ACETAMINOPHEN 650 MG SUPP PR PRN; -ASPIRIN 325 MG TAB PO SCH; -CELECOXIB 200 MG CAP ONE; -CELECOXIB 200 MG CAP PO SCH; -Cefazolin 1 GM in SODIUM CHLORIDE 0.9% 50ML 50 ML IV SCH; -DEXAMETHASONE SOD PHOS 10 MG/1 ML VIAL ONE; -DIPHENHYDRAMINE HCL INJ 50 MG/ML VIAL IV PRN; -DOCUSATE SODIUM 100 MG CAP PO PRN; -FENTANYL CITRATE/PF 100MCG/2 ML INJ ONE; -GABAPENTIN 300 MG CAP ONE; -GLYCOPYRROLATE INJ 0.2 MG/ML VIAL ONE; -HYDROCODONE/APAP 5MG-325MG TAB PO PRN; -HYDROCODONE/APAP 7.5MG-325MG 1 EA TAB ONE; -HYDROCODONE/APAP 7.5MG-325MG 1 EA TAB PO PRN; -HYDROMORPHONE 1MG/1ML INJ ONE; -KETOROLAC TROMETHAMINE 30 MG/ML VIAL IV PRN; -LIDOCAINE HCL 2% LOCAL INJ 5 ML SDV VIAL INJ ONE; -MIDAZOLAM HCL 2 MG/2 ML VIAL ONE; -NEOSTIGMINE 1 MG/ML 10ML VIAL ONE; -ONDANSETRON HCL INJ 2MG/ML 2ML 2 MG/ML VIAL IV PRN; -ONDANSETRON HCL INJ 2MG/ML 2ML 2 MG/ML VIAL ONE; -POVIDONE IODINE 0.05% 0.05 % ML PO ONE; -PROPOFOL IV EMULSION 10 MG/ML 20 ML VIAL ONE; -ROCURONIUM BROMIDE 10 MG/ML 5ML VIAL IV ONE; -ROPIVACAINE 0.5% 5 MG/ML 30 ML SDV ONE; -ROPIVACAINE 246.25 MG, EPINEPHRINE HCL 1:1000 1ML 0.5 MG, CLONIDINE HCL 0.08 MG, KETORO... INJ ONE; -SEVOFLURANE INHAL SOLN 250 ML PEN BTL ONE; -SODIUM CHLORIDE 0.9% 1000ML 1,000 ML IV SCH; -SODIUM CHLORIDE 0.9% 500ML 500 ML ONE; -SODIUM CHLORIDE 0.9% 50ML 100 ML ONE; -TRANEXAMIC ACID 1,000 MG/10 ML ML ONE; -Vancomycin IV 1,000 MG ONE; -ZOLPIDEM TARTRATE 5 MG TAB PO PRN
[2023-01-16 11:32] LABS: BASOPHILS # (AUTO) 0.1 (0.0-0.1); BASOPHILS % 0.6 % (0.0-1.0); EOSINOPHILS # (AUTO) 0.1 (0.0-0.4); EOSINOPHILS % 1.4 % (0.0-6.0); HEMATOCRIT 44.2 % (34.2-44.1); HEMOGLOBIN 14.9 g/dL (12.0-16.0); LYMPHOCYTES # (AUTO) 1.9 (1.0-3.2); LYMPHOCYTES % 22.8 % (18.0-39.1); MEAN CORPUSCULAR HEMOGLOBIN 28.4 pg (28-32); MEAN CORPUSCULAR HGB CONC 33.7 g/dL (31-35); MEAN CORPUSCULAR VOLUME 84.2 fL (81-99); MONOCYTES # (AUTO) 0.7 (0.2-0.8); MONOCYTES % 8.3 % (4.4-11.3); NEUTROPHILS # (AUTO) 5.7 (2.1-6.9); NEUTROPHILS % 66.5 % (38.7-80.0); PLATELET COUNT 228 x10e3/uL (140-360); RED BLOOD COUNT 5.25 x10e6/uL (3.6-5.1); RED CELL DISTRIBUTION WIDTH 17.2 % (11.7-14.4); WHITE BLOOD COUNT 8.48 x10e3/uL (4.8-10.8)
[2023-01-16 11:43] LABS: ANION GAP 14.2 mmol/L (8-16); BLOOD UREA NITROGEN 17 mg/dL (7-26); BUN/CREATININE RATIO 13 (6-25); CALCIUM 9.5 mg/dL (8.4-10.2); CARBON DIOXIDE 24 mmol/L (22-29); CHLORIDE 103 mmol/L (98-107); CREATINE KINASE 22 IU/L (29-168); CREATININE, SERUM 1.29 mg/dL (0.57-1.11); GLUCOSE 235 mg/dL (74-118); POTASSIUM 4.2 mmol/L (3.5-5.1); SODIUM 137 mmol/L (136-145)
[2023-01-16] MEDS ORDERED: METOPROLOL TARTRATE INJ 1 MG/ML VIAL IV ONE ×3 (11:45→13:30)
[2023-01-16 11:50] LABS: INR 1.01; PROTHROMBIN TIME 13.9 seconds (11.9-14.5)
[2023-01-16 12:03] LABS: THYROID STIMULATING HORMONE 0.933 uIU/mL (0.350-4.940)
[2023-01-16] MEDS ORDERED: LACTATED RINGER'S 1,000 ML IV ONE (13:45)
[2023-01-16] MEDS ORDERED: ASPIRIN 81 MG CHEW TAB PO ONE (14:00)
[2023-01-16] MEDS ORDERED: SODIUM CHLORIDE FLUSH 10 ML SYR INJ PRN (14:00)
[2023-01-16 14:21] LABS: CLARITY,URINE SL CLOUDY (CLEAR); COLOR,URINE AMBER (YELLOW); LEUKOCYTE ESTERASE ,URINE NEGATIVE (NEGATIVE); NITRITE,URINE NEGATIVE (NEGATIVE); PROTEIN,URINE DIPSTICK NEGATIVE (NEGATIVE)
[2023-01-16 14:22] LABS: KETONES,URINE NEGATIVE (NEGATIVE); URINE UROBILINOGEN 1 mg/dL (0.2 - 1)
[2023-01-16 14:35] LABS: EPITHELIAL CELLS,URINE FEW /LPF; WBC,URINE (MAN) 0-5 /HPF (0-5)
[2023-01-16] MEDS ORDERED: AMIODARONE HCL 150 MG/100 ML BAG IV ONE (16:45)
[2023-01-16] MEDS ORDERED: METOPROLOL TARTRATE INJ 1 MG/ML VIAL IV PRN (16:45)
[2023-01-16] MEDS ORDERED: AMIODARONE 900MG 500 ML IV SCH ×2 (17:00→23:15)
[2023-01-16] MEDS ORDERED: AMIODARONE HCL 100 ML IV ONE (17:00)
[2023-01-16] MEDS: METOPROLOL TARTRATE 50 MG TAB PO SCH (17:06)
[2023-01-16] MEDS ORDERED: HEPARIN SOD (PORCINE) 1000 UNIT/ML SDV IV ONE (18:00)
[2023-01-16] MEDS ORDERED: HEPARIN 25,000 UNIT/D5W 250ML 900 UNIT in DEXTROSE 5% 250ML 250 ML IV SCH (18:00)
[2023-01-17] VITALS (35 sets, daily range): BP systolic 93–144; BP diastolic 61–115; PULSE 80–121; RESP 12–25; TEMP 98–98.5; O2SAT 92–100
[2023-01-17 00:34] LABS: CHOL/HDL RATIO 2.3 (3.0-3.6)
[2023-01-17] MEDS ORDERED: METOPROLOL SUCC50 MG PO (02:32)
[2023-01-17] MEDS: METOPROLOL TARTRATE 50 MG TAB PO SCH (08:37)
[2023-01-17] MEDS ORDERED: DEXTROSE 50% SYRINGE 50 ML IV PRN (09:15)
[2023-01-17] MEDS: PANTOPRAZOLE SOD 40 MG TABEC PO SCH (09:44)
[2023-01-17] MEDS ORDERED: BENZOCAINE 20% SPR 60 ML CAN ONE (12:28)
[2023-01-17] MEDS ORDERED: MIDAZOLAM HCL 2 MG/2 ML VIAL ONE (12:28)
[2023-01-17] MEDS ORDERED: FENTANYL CITRATE/PF 100MCG/2 ML INJ ONE (12:28)
[2023-01-17] MEDS ORDERED: SODIUM CHLORIDE 0.9% 500ML 500 ML ONE (12:29)
[2023-01-17] MEDS: INSULIN REGULAR, HUMAN 100 UNIT/1 ML SQ SCH ×3 (12:46→20:39)
[2023-01-17] MEDS ORDERED: DIGOXIN INJ 0.25 MG/ML 2 ML AMP IV ONE (15:15)
[2023-01-17] MEDS: ISOSORBIDE MONONITRATE 30 MG TAB CR PO SCH (16:35)
[2023-01-17] MEDS ORDERED: AMIODARONE HCL 200 MG TAB PO ONE (17:00)
[2023-01-17] MEDS ORDERED: SACUBITRIL/VALSARTAN 24MG/26MG 1 EA TAB PO SCH (17:00)
[2023-01-17] MEDS: APIXABAN 5 MG TABLET PO SCH (18:20)
[2023-01-17] MEDS: HYDRALAZINE HCL 25 MG TAB PO SCH (18:20)
[2023-01-17] MEDS ORDERED: ESCITALOPRAM OXALATE 10 MG TAB PO SCH (21:00)
[2023-01-17] MEDS ORDERED: ZOLPIDEM TARTRATE 5 MG TAB PO SCH (21:30)
[2023-01-18] VITALS (18 sets, daily range): BP systolic 89–159; BP diastolic 53–106; PULSE 92–124; RESP 12–22; TEMP 97.4–98.6; O2SAT 94–100
[2023-01-18] MEDS: INSULIN REGULAR, HUMAN 100 UNIT/1 ML SQ SCH ×2 (08:01→11:50)
[2023-01-18] MEDS: PANTOPRAZOLE SOD 40 MG TABEC PO SCH (08:02)
[2023-01-18] MEDS: APIXABAN 5 MG TABLET PO SCH (08:03)
[2023-01-18] MEDS: ISOSORBIDE MONONITRATE 30 MG TAB CR PO SCH (08:03)
[2023-01-18] MEDS: HYDRALAZINE HCL 25 MG TAB PO SCH (08:03)
[2023-01-18] MEDS ORDERED: AMIODARONE HCL 200 MG TAB PO SCH (09:00)
[2023-01-18] MEDS ORDERED: SPIRONOLACTONE 25 MG TAB PO SCH (09:00)
[2023-01-18] MEDS ORDERED: METOPROLOL SUCCINATE 50 MG TAB XL PO SCH (09:00)
[2023-01-18] MEDS ORDERED: ELIQUIS5 MG PO (11:32)
[2023-01-18] MEDS ORDERED: AMIODARONE HCL200 MG PO (11:32)
[2023-01-18] MEDS ORDERED: ENTRESTO 49 MG1 EACH PO (11:36)
[2023-01-25] MEDS ORDERED: AMIODARONE HCL 200 MG TAB PO SCH (09:00)
== END 2023-01-18 13:36 | disposition home or self-care (01) | DRG 308 ==
LOC: ER 11:09 → ERHOLD 13:57 → ICU 16:11
PROVIDERS: ADMIT Internal Medicine; ATTEND Internal Medicine
DX: I48.0 Paroxysmal atrial fibrillation (principal); U07.1 COVID-19; I13.0 Hypertensive heart and chronic kidney disease with heart failure and stage 1 through stage 4 chronic kidney disease, or unspecified chronic kidney disease; I50.22 Chronic systolic (congestive) heart failure; I48.92 Unspecified atrial flutter; N18.30 Chronic kidney disease, stage 3 unspecified; E11.22 Type 2 diabetes mellitus with diabetic chronic kidney disease; E66.9 Obesity, unspecified; Z68.31 Body mass index [BMI] 31.0-31.9, adult; I51.3 Intracardiac thrombosis, not elsewhere classified; R53.1 Weakness; E11.65 Type 2 diabetes mellitus with hyperglycemia; K21.9 Gastro-esophageal reflux disease without esophagitis; Z87.11 Personal history of peptic ulcer disease; M32.9 Systemic lupus erythematosus, unspecified; Z79.82 Long term (current) use of aspirin
CPT/HCPCS: 0223U; 36415; 71045; 80048; 80061; 81001; 82550; 82948; 83036; 84443; 84484; 85025; 85610; 85730; 93005; 93306; 93312; 93320; 93325; 93355; 99152; 99284; J1160; J1644; J2250; J7040